=== PATIENT | female | born 1955 | race Caucasian/White ===

== ENCOUNTER 2018-05-07 06:26 | Day surgery (SDC) | payer OTHER ==
[2018-04-30 11:51] LABS: Absolute Lymphocytes (CBC) 1.9 K/uL (0.7-4.9); Absolute Monocytes 0.7 K/uL (0.1-1.3); Absolute Neutrophil 3.9 K/uL (1.8-8.0); Basophils % 1.3 % (0-1.3); Eosinophils % 3.7 % (0-4.4); Hematocrit 41.6 % (36.0-45.0); MCV 92.1 fL (80-100); MPV 9.1 fL (7.6-11.3); Monocytes % 10.2 % (3.3-12.3); RBC Red Blood Cell Count 4.52 M/uL (3.86-4.86)
[2018-04-30 12:00] LABS: Protime INR 0.99
--- NOTE | 2018-04-30 15:17 | EKG ---
Test Date: 2018-04-30 Test Time: 10:50:13 Wrong Address Clerk: ROSA MEASUREMENT RESULTS: Intervals: Rate: 59 MI: 172 QRSD: 88 QT: 438 QTc: 433 [place]: P: 60 MI: 172 QRS: 25 T: 45 INTERPRETIVE STATEMENTS: Sinus bradycardia Otherwise normal ECG Compared to ECG 02/28/2017 13:21:56 Sinus rhythm no longer present Electronically Signed On 04-30-18 15:16:33 CDT by Juan C Silverman
--- OUTSIDE RECORDS SUMMARY | 2018-05-07 06:39 | XMS REPORT ---
:1955 Author Organization eClinicalWorks Care Team Providers Name Role Phone Rickie Stone Provider Role Unavailable Allergies, Adverse Reactions, Alerts Substance Reaction Event Type N.K.D.A. Info Not Available Non Drug Allergy Problems Problem Type Condition Code Onset Dates Condition Status Assessment Pain in joint of right knee M25.561 Active Assessment Closed displaced comminuted S82.041S Active fracture of right patella, sequela Assessment Painful orthopaedic hardware T84.84XA Active Medications Medication Code Code Instructions Start End Status Dosage System Date Date Hydrochlorothiazide [facility] 06155192488 25 MG Oral Active not defined Montelukast Sodium [facility] 21286578599 10 MG Oral Active not defined Temazepam ND 29698109869 15 MG Oral Active not defined Ibuprofen [facility] 29821291095 800 MG Oral Active not defined Lidocaine & Adhesive NDC 0 5 % Externally Active as Sheet directed Carvedilol [facility] 50365028472 12.5 MG Oral Active not defined Results No Known Results Summary Purpose eClinicalWorks Submission
[2018-05-07] MEDS ORDERED: Ringers Lactate 1,000 ML IV ONE (06:47)
[2018-05-07] MEDS ORDERED: CEFAZOLIN/SWI 1gm 1 GM/10 ML SYR ONE (06:47)
[2018-05-07] MEDS ORDERED: PROPOFOL 200 MG/20 ML VIAL IV ONE (07:01)
[2018-05-07] MEDS ORDERED: LIDOCAINE 1% MPF 5 ML VIAL ONE (07:01)
[2018-05-07] MEDS ORDERED: MIDAZOLAM HCL 2 MG/2 ML INJ ONE (07:01)
[2018-05-07] MEDS ORDERED: FENTANYL CITR 250 MCG/5 ML ONE (07:03)
[2018-05-07] MEDS ORDERED: ONDANSETRON HCL 40 MG/20 ML VIAL ONE (07:04)
[2018-05-07] MEDS: BUPIVACAINE 0.25% PF 10 ML VIAL ONE ×3 (08:10→08:42)
--- NOTE | 2018-05-07 09:05 | P.BOP ---
Preoperative diagnosis: right knee retained patellar hardware Postoperative diagnosis: same Primary procedure: removal of hardware right patell Other procedure(s): none Division Plant Engineer: NONE,NONE Estimated blood loss: 10 cc Specimen: none Findings: see dictation Anesthesia: General Complications: None Implants: none Fluids & blood products: per anesthesia record Transferred to: Recovery Room Condition: Good
[2018-05-07] MEDS: MEPERIDINE HCL 50 MG/ML AMP ONE ×4 (09:11→09:35)
[2018-05-07] MEDS ORDERED: ONDANSETRON 4 MG/2 ML VIAL ONE (09:34)
[2018-05-07] MEDS ORDERED: PROMETHAZINE 25 MG/ML VIAL ONE (09:38)
--- NOTE | 2018-05-07 10:17 | RAD REPORT ---
EXAM DESCRIPTION: RAD - Knee Right 2 View - 05/07/2018 9:30 am CLINICAL HISTORY: Postsurgical hardware removal, knee pain, patella fracture repair COMPARISON: March 2017 FINDINGS: Patella fracture fixation hardware has been removed. Patella appears well healed. There de generative and remodeling changes to the patella. Soft tissue swelling around the patella is present not unexpected for the surgical procedure. No acute findings of the femur, tibia or fibula. No suspic ious or unexpected finding. External brace is in place. IMPRESSION: Hardware has been removed from the patella. Patella fracture is well healed. No acute or unexpected finding.
[2018-05-07] MEDS ORDERED: HYDROCODONE/APAP 5/325 MG TAB ONE (10:53)
--- NOTE | 2018-05-07 10:58 | RAD REPORT ---
EXAM DESCRIPTION: RAD - Knee Right 2 View - 05/07/2018 10:44 am CLINICAL HISTORY: Fluoroscopic assisted surgical hardware removal COMPARISON: March 2017 postsurgical images FINDINGS: There were 27 portable C-arm views submitted from the fluoroscopic assisted hardware remov al procedure. Fluoro time was 0.6 minutes. Images show stepwise removal of the hardware. No suspicious or unexpected finding. IMPRESSION: Removal of patella fracture repair hardware. No suspicious or unexpected finding.
--- NOTE | 2018-05-07 21:43 | OP ---
Date of Procedure: 05/07/2018 Surgeon: Rickie Stone MD Preoperative Diagnosis: Retained hardware, right patella. Postoperative Diagnosis: Retained hardware, right patella. Procedure Performed: Removal of hardware, right patella. Anesthesia: General LMA. Fluids: Per Anesthesia record. Estimated Blood Loss: 10 cc. Implants: None. Complications: None. Tourniquet Time: No tourniquet was used. Indication For Procedure: Ms. Guzmán is a 63-year-old female who is just over 1 year status post OR IF of her right patella fracture with tension band fixation. She reports painful retained hardware. Her x-rays demonstrate healed fracture. I discussed with the patient at length risks and benefits a ssociated with operative and nonoperative treatment. She expressed understanding and elected to proc eed with removal of hardware. Description Of Procedure: After informed consent was obtained, the patient was identified in the pre operative holding area. The right lower extremity was marked. The patient was then brought back to the operating room, transferred to the operating table in a supine fashion and placed under general L MA anesthesia. The right lower extremity was then prepped and draped in usual sterile fashion. A ti me-out was initiated. The correct patient and procedure were confirmed and identified. The patient did receive her preoperative prophylactic antibiotics. First, under fluoroscopy, the knee was ranged in both AP and lateral plane. There was no motion at the fracture site confirming complete median f racture. Approximately, a 6 cm incision was made and centered over the prior incision over the proxi mal aspect of the patella. Dissection was then taken down to the extensor mechanism. The K-wires we re then identified under direct visualization, complete removal of the K-wires was confirmed using fl uoroscopy. The cerclage wire was then noted at the one end of the base of the twist and cerclage wir e was then removed. Complete removal of the wire was confirmed using fluoroscopy. The knee was then again ranged under fluoroscopic guidance, and there was no motion at the fracture site. The wound w as then irrigated thoroughly with normal saline. Deep fascia was approximated using an 0 Vicryl. Guillermo bcutaneous tissue was approximated using a 2-0 Vicryl. Skin was approximated with nylon sutures. St erile dressings were applied. The patient was placed in a hinged knee brace with the knee locked up from 0 to 30 degrees. She may be weightbearing as tolerated. Postoperative Plan: She will follow up in my clinic in 2 weeks for suture removal. At that point, w e will increase her range of motion. JOEL/DUSTIN Voice ID: [id number] Report ID: [id number]
== END 2018-05-07 11:28 | disposition home or self-care (01) ==
LOC: OR 06:26
PROVIDERS: ATTEND Orthopaedic Surgery Sports Medicine
PROC: 0QPD04Z Removal of Internal Fixation Device from Right Patella, Open Approach (ICD-10-PCS; principal; 2018-05-07 07:30)
DX: T84.84XA Pain due to internal orthopedic prosthetic devices, implants and grafts, initial encounter (principal); I10 Essential (primary) hypertension; Z87.891 Personal history of nicotine dependence; Z82.49 Family history of ischemic heart disease and other diseases of the circulatory system
CPT/HCPCS: 36415; 80048; 85025; 85610; 85730; 93005; J0690; J2175; J2250; J2405; J2550; J2704; J3010

== ENCOUNTER 2019-05-20 14:13 | Emergency (ER) | payer OTHER ==
--- OUTSIDE RECORDS SUMMARY | 2019-05-20 14:15 | XMS REPORT ---
:1955 Author Organization eClinicalWorks Care Team Providers Name Role Phone Rickie Stone Provider Role Unavailable Allergies, Adverse Reactions, Alerts Substance Reaction Event Type N.K.D.A. Info Not Available Non Drug Allergy Problems Problem Type Condition Code Onset Dates Condition Status Assessment Pain, joint, knee, right M25.561 Active Assessment Closed displaced comminuted S82.041S Active fracture of right patella, sequela Assessment Painful orthopaedic hardware T84.84XA Active Medications Medication Code Code Instructions Start End Status Dosage System Date Date Montelukast Sodium [facility] 07199054351 10 MG Oral Active not defined Ibuprofen ND 06483503156 800 MG Oral Active not defined Hydrochlorothiazide ND 88668657831 25 MG Oral Active not defined Temazepam ND 44760897811 15 MG Oral Active not defined Lidocaine & Adhesive NDC 0 5 % Externally Active as Sheet directed Carvedilol ND 92713310989 12.5 MG Oral Active not defined Results No Known Results Summary Purpose eClinicalWorks Submission
--- OUTSIDE RECORDS SUMMARY | 2019-05-20 14:15 | XMS REPORT ---
[...] End Status Dosage System Date Date Hydrochlorothiazide [facility] [place] 2] 40229439448 25 MG Oral Active not defined Montelukast Sodium [facility] [place] 2] 18217992747 10 MG Oral Active not defined Temazepam ND 32874886247 15 MG Oral Active not defined Ibuprofen [facility] [place]NOTE 2] 41997979242 800 MG Oral Active not defined Lidocaine & Adhesive NDC 0 5 % Externally Active as Sheet directed Carvedilol [facility] [place]NOTE 2] 55381453926 12.5 MG Oral Active not defined Results No Known Results Summary Purpose eClinicalWorks Submission
--- NOTE | 2019-05-20 15:04 | ER ---
Nurse's Notes [facility] Name: Skye Guzmán Age: 64 yrs Sex: Female : 1955 Arrival Date: 05/20/2019 Time: 14:14 Bed Waiting Private MD: Diagnosis: Presentation: 05/20 14:21 Presenting complaint: Patient states: "She has been in the ER for this before in [facility]. This is the third time it's happened. She feels like she is going to pass out." Pt states, "I'm Jittery, my whole body feels numb." Patient reports that symptoms began this morning at 1130. Transition of care: patient was not received from another setting of care. Onset of symptoms was May 20, 2019. Risk Assessment: Do you want to hurt yourself or someone else? Patient reports no desire to harm self or others. Initial Sepsis Screen: Does the patient meet any 2 criteria? No. Patient's initial sepsis screen is negative. Does the patient have a suspected source of infection? No. Patient's initial sepsis screen is negative. 14:21 Method Of Arrival: Ambulatory ss 14:21 Acuity: MALLY 3 ss 14:25 Care prior to arrival: Pt checked her blood sugar 30 minutes ago and reports that is ss was 101. 14:55 Note Patient and her family member are upset that patient has not been taken straight aj1 to the back. Explained to patient that we have no beds at this time, but will get her back in the back as soon as possible. Patient's family is upset states "well I feel like she is having a stroke and you wont take her back!" When asked why she felt that patient was having a stroke she states "well she is having numbness" Patient reports that she currently has numbness over her entire body. Patient denies any unilateral weakness or numbness. Patient has no facial droop or slurred speech at this time. Patient has is to use all four extremities. Explained to patient that her symptoms were not typical stroke symptoms but we would be happy to try to find the cause as soon as we have a bed available. Patient's family member states "her blood pressure is guillermo high and climbing!!" Offered to recheck patient's vital signs, patient refused. Family member asks if we are going to take her back now or if she needs to leave and take patient to [facility]. Instructed patient and family member that we are happy to treat her, but I do not have a bed to put her in at this time. Patient states that she is leaving, stands up out of wheelchair and walks out of the ER with a steady gait. Historical: - Allergies: 14:24 NKA; ss - PMHx: 14:24 Hyperlipidemia; Hypertension; ss - PSHx: 14:24 Hysterectomy; ; ss - Immunization history:: Adult Immunizations up to date. - Social history:: Smoking status: Patient/guardian denies using tobacco, but has a distant history of tobacco abuse. - Ebola Screening: : Patient denies exposure to infectious person Patient denies travel to an Ebola-affected area in the 21 days before illness onset. Vital Signs: 14:24 BP 154 / 90; Pulse 83; Resp 18; Temp 98.3(TE); Pulse Ox 96% on R/A; Weight 67.13 kg; ss Height 5 ft. 2 in. (157.48 cm); Pain 0/10; 14:26 BP 142 / 93; Pulse 83; ss 14:24 Body Mass Index 27.07 (67.13 kg, 157.48 cm) ED Course: 14:14 Patient arrived in ED. as 14:23 Triage completed. ss 14:24 Arm band placed on left wrist. ss Administered Medications: No medications were administered Outcome: 15:03 Eloped from waiting room, before seeing physician rayshawn 15:03 Patient left the ED. aj1 Signatures: Lucia Cristina RN RN Rika Mayberry Shelby, RN RN Corrections: (The following items were deleted from the chart) 14:26 14:21 Care prior to arrival: None. ss 15:03 14:55 Note Patient and her family member are upset that patient has not been taken aj1 straight to the back. Explained to patient that we have no beds at this time, but will get her back in the back as soon as possible. Patient's family is upset states "well I feel like she is having a stroke and you wont take her back!" When asked why she felt that patient was having a stroke she states "well she is having numbness" Patient reports that she currently has numbness over her entire body. Patient denies any unilateral weakness or numbness. Patient has no facial droop or slurred speech at this time. Patient has is able to use all four extremities. Explained to patient that her symptoms were not typical stroke symptoms but we would be happy to try to find the cause as soon as we have a bed available. Patient's family member states "her blood pressure is guillermo high and climbing!!" Offered to recheck patient's vital signs, patient refused. Family member asks if we are going to take her back now or if she needs to leave and take patient to [facility]. Instructed patient and family member that we are happy to treat her, but I do not have a bed to put her in at this time. Patient states that she is leaving, stands up out of wheelchair and walks out of the ER with a steady gait. aj1
[2019-05-20 15:28] VITALS: TEMP 98.3; O2SAT 96
[2019-05-20 15:30] VITALS: BP 142/93
== END 2019-05-20 15:03 | disposition left against medical advice (07) ==
LOC: ER 14:13
DX: Z53.21 Procedure and treatment not carried out due to patient leaving prior to being seen by health care provider (principal)
CPT/HCPCS: 99281

== ENCOUNTER 2023-01-07 01:14 | Observation (INO) | payer OTHER ==
--- OUTSIDE RECORDS SUMMARY | 2023-01-07 01:17 | XMS REPORT | Continuity of Care Document ---
:1955 Author Organization [facility] t Address [address] [place] [address] [place] [id number] Care Team Providers Name Role Phone Raju_P Attending Clinician Unavailable Raju_P Admitting Clinician Unavailable Payers Payer Name Policy Type Policy Number Effective Date Expiration Date S torince MEDICARE NOVITAS MB [id number] [facility] Blue Cross Blue C1 [id number] [facility] [place] [facility] MEDICARE NOVITAS MB [id number] [facility] Blue Cross Blue C1 [id number] [facility] [place] [facility] Blue Cross Blue C1 [id number] [facility] [place] [facility] MEDICARE NOVITAS MB [id number] [facility] MEDICARE NOVITAS MB [id number] [facility] Blue Cross and C1 [id number] [facility] Blue Shield - [facility] Blue Cross and C1 [id number] [facility] Blue Shield [facility] MEDICARE NOVITAS MB [id number] [facility] [place] [id number] 2019 [place] [id number] 2017 [place] 00:00:00 [place]UT[place]: [id number] 2017 [facility] 00:00:00 [facility] Problems Condition Condition Condition Status Onset Resolution Last Treating Co mments Source Name Details Category Date Date Treatment Clinician Date [id number] Arthritis Problem Com mon of left Spirit acromiocla - [facility] vicular [facility] [id number] 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 Social History Social Habit Start Date Stop Date Quantity Comments Source History of Tobacco Use Co mmon [facility] Sex Assigned At Com mon [facility] Smoking Status Start Date Stop Date Source Former Smoker 2022-06-19 00:00:2022-06-19 00:00:00 [facility] Medications Ordered Filled Start Stop Current Ordering Indication Dosage Frequency Signature Comments Components Source Medication Medication Date Date Medication? Clinician (SIG) Name Name Bupivicaine Bupivicaine No 2.5mg Common Marion Marion 11-29 Spirit 00:00: - [facility] Kenalog Kenalog No 40mg Common (Triamcinol (Triamcinol 11-29 S pirit one) one) 00:00: - [facility] Hydrochloro Hydrochloro No Hydrochlor thiazide 25 thiazide 25 othiazide MG MG 25 MG Ibuprofen Ibuprofen No Ibuprofen 800 MG 800 MG 800 MG Lidocaine & Lidocaine & No Lidocaine Adhesive Adhesive & Adhesive Sheet 5 % Sheet 5 % Sheet 5 % Montelukast Montelukast No Montelukas Sodium 10 Sodium 10 t Sodium MG MG 10 MG hydroCHLORO hydroCHLORO No hydroCHLOR thiazide 25 thiazide 25 Othiazide MG MG 25 MG Carvedilol Carvedilol No Carvedilol 12.5 MG 12.5 MG 12.5 MG Temazepam Temazepam No Temazepam 15 MG 15 MG 15 MG Ibuprofen Ibuprofen No Ibuprofen 800 MG 800 MG 800 MG Montelukast Montelukast No Montelukas Sodium 10 Sodium 10 t Sodium MG MG 10 MG Lidocaine & Lidocaine & No Lidocaine Adhesive Adhesive & Adhesive Sheet 5 % Sheet 5 % Sheet 5 % Temazepam Temazepam No Temazepam 15 MG 15 MG 15 MG Carvedilol Carvedilol No Carvedilol 12.5 MG 12.5 MG 12.5 MG hydroCHLORO hydroCHLORO No hydroCHLOR thiazide 25 thiazide 25 Othiazide MG MG 25 MG traZODone traZODone No traZODone HCl HCl HCl Zofran Zofran No Zofran Singulair Singulair No Singulair Levalbutero Levalbutero No Levalbuter l HCl l HCl ol HCl Vascepa Vascepa No Vascepa Valtrex Valtrex No Valtrex Folic Acid Folic Acid No Folic Acid Breztri Breztri No Breztri [employer] carvedilol carvedilol No carvedilol [place] 25 mg 25 mg 25 mg da tablet tablet tablet Medical Group Fioricet Fioricet No Fioricet Phenylalani Phenylalani No Phenylalan ne ne ine Flovent Flovent No Flovent [place] Diskus 100 Diskus 100 Diskus 100 da mcg/actuati mcg/actuati mcg/actuat Medical on powder on powder ion powder Group for for for inhalation inhalation inhalation Temazepam Temazepam No Temazepam 15 MG 15 MG 15 MG fluticasone fluticasone No fluticason [place] propionate propionate e da 50 50 propionate Medical mcg/actuati mcg/actuati 50 G roup on nasal on nasal mcg/actuat spray,suspe spray,suspe ion nasal nsion nsion spray,susp ension Montelukast Montelukast No Montelukas Sodium 10 Sodium 10 t Sodium MG MG 10 MG hydrochloro hydrochloro No hydrochlor [place] thiazide 25 thiazide 25 othiazide da mg tablet mg tablet 25 mg Medi daniel tablet Group Robaxin Robaxin No Robaxin Coreg Coreg No Coreg ipratropium ipratropium No ipratropiu [place] bromide bromide m bromide da 0.02 % 0.02 % 0.02 % Medical solution solution solution Mean up for for for inhalation inhalation inhalation hydroCHLORO hydroCHLORO No hydroCHLOR thiazide 25 thiazide 25 Othiazide MG MG 25 MG ketorolac ketorolac No ketorolac [place] 10 mg 10 mg 10 mg da tablet tablet tablet Medical Group Vitamin D Vitamin D No Vitamin D Quercetin Quercetin No Quercetin levalbutero levalbutero No levalbuter [place] l HFA 45 l HFA 45 ol HFA 45 da mcg/actuati mcg/actuati mcg/actuat Medical on aerosol on aerosol ion Mena up inhaler inhaler aerosol inhaler losartan 50 losartan 50 No losartan [place] mg tablet mg tablet 50 mg da tablet Medical Group montelukast montelukast No montelukas [place] 10 mg 10 mg t 10 mg da tablet tablet tablet Medical Group mupirocin 2 mupirocin 2 No mupirocin [place] % topical % topical 2 % da ointment ointment topical Medi dainel ointment Group Restoril 15 Restoril 15 No 1capsul Q1D Restoril [place] mg capsule mg capsule e(s) 15 mg da Take 1 Take 1 capsule Medical capsule capsule Take 1 Group every day every day capsule by oral by oral every day route. route. by oral route. Symbicort Symbicort No Symbicort [place] 160 mcg-4.5 160 mcg-4.5 160 d a mcg/actuati mcg/actuati mcg-4.5 Medical on HFA on HFA mcg/actuat Group aerosol aerosol ion HFA inhaler inhaler aerosol inhaler valacyclovi valacyclovi No valacyclov [place] r 1 gram r 1 gram ir 1 gram da tablet tablet tablet Medical Group Wellbutrin Wellbutrin No 1 Q1D Wellbutrin [place] XL 300 mg XL 300 mg XL 300 mg da 24 hr 24 hr 24 hr Medical tablet, tablet, tablet, Group extended extended extended release release release Take 1 Take 1 Take 1 tablet tablet tablet every day every day every day by oral by oral by oral route. route. route. Hydrochloro Hydrochloro Yes Rickie not Common thiazide thiazide Stone defined Spir it [facility] Montelukast Montelukast Yes Rickie not Common Sodium Sodium Stone defined [facility] Temazepam Temazepam Yes Rickie not Co mmon Stone defined [facility] Ibuprofen Ibuprofen Yes Rickie not Co mmon Stone defined [facility] Lidocaine & Lidocaine & Yes Rickie as Common Adhesive Adhesive Stone directed Spi rit Sheet Sheet [facility] Carvedilol Carvedilol Yes Rickie not Common Stone defined [facility] Lidocaine & Lidocaine & No Lidocaine Adhesive Adhesive & Adhesive Sheet 5 % Sheet 5 % Sheet 5 % ZyrTEC ZyrTEC No ZyrTEC B Complex B Complex No B Complex ProAir HFA ProAir HFA No ProAir HFA Mupirocin Mupirocin No Mupirocin Losartan Losartan No Losartan Potassium Potassium Potassium Wellbutrin Wellbutrin No Wellbutrin Diclofenac Diclofenac No Diclofenac Zovirax Zovirax No Zovirax Ibuprofen Ibuprofen No Ibuprofen 800 MG 800 MG 800 MG Carvedilol Carvedilol No Carvedilol 12.5 MG 12.5 MG 12.5 MG Flonase Flonase No Flonase Carvedilol Carvedilol No Carvedilol 12.5 MG 12.5 MG 12.5 MG Lidocaine & Lidocaine & No Lidocaine Adhesive Adhesive & Adhesive Sheet 5 % Sheet 5 % Sheet 5 % Montelukast Montelukast No Montelukas Sodium 10 Sodium 10 t Sodium MG MG 10 MG Temazepam Temazepam No Temazepam 15 MG 15 MG 15 MG Ibuprofen Ibuprofen No Ibuprofen 800 MG 800 MG 800 MG Hydrochloro Hydrochloro No Hydrochlor thiazide 25 thiazide 25 othiazide MG MG 25 MG Carvedilol Carvedilol No Carvedilol 12.5 MG 12.5 MG 12.5 MG Lidocaine & Lidocaine & No Lidocaine Adhesive Adhesive & Adhesive Sheet 5 % Sheet 5 % Sheet 5 % Montelukast Montelukast No Montelukas Sodium 10 Sodium 10 t Sodium MG MG 10 MG Temazepam Temazepam No Temazepam 15 MG 15 MG 15 MG Ibuprofen Ibuprofen No Ibuprofen 800 MG 800 MG 800 MG Hydrochloro Hydrochloro No Hydrochlor thiazide 25 thiazide 25 othiazide MG MG 25 MG Carvedilol Carvedilol No Carvedilol 12.5 MG 12.5 MG 12.5 MG Lidocaine & Lidocaine & No Lidocaine Adhesive Adhesive & Adhesive Sheet 5 % Sheet 5 % Sheet 5 % Montelukast Montelukast No Montelukas Sodium 10 Sodium 10 t Sodium MG MG 10 MG Temazepam Temazepam No Temazepam 15 MG 15 MG 15 MG Ibuprofen Ibuprofen No Ibuprofen 800 MG 800 MG 800 MG Immunizations Ordered Immunization Filled Immunization Date Status Commen ts Source Name Name Bupivicaine Marion Bupivicaine Marion 2020-11-29 Completed [facility] 08:35:00 [facility] Bupivicaine Marion Bupivicaine Marion 2020-11-29 Completed [facility] 08:35:00 [facility] Kenalog Kenalog 2020-11-29 Completed [facility] (Triamcinolone) (Triamcinolone) 08:34:00 [facility] Horace Vu 2020-11-29 Completed [facility] (Triamcinolone) (Triamcinolone) 08:34:00 [facility] Vital Signs Vital Name Observation Time Observation Value Comments Source height 2022-06-19 10:00:00 62 [in_i] [facility] weight 2022-06-19 10:00:00 148.7 [lb_av] [facility] temperature 2022-06-19 10:00:00 96.6 [degF] [facility] bmi 2022-06-19 10:00:00 27.19 kg/m2 [facility] blood pressure 2022-06-19 10:00:00 120 mm[Hg] [facility] - systolic [facility] blood pressure 2022-06-19 10:00:00 80 mm[Hg] [facility] - diastolic [facility] height 2021-01-30 09:00:00 62 [in_i] [facility] weight 2021-01-30 09:00:00 146 [lb_av] [facility] temperature 2021-01-30 09:00:00 97.5 [degF] [facility] - [facility] bmi 2021-01-30 09:00:00 26.7 kg/m2 [facility] - [facility] blood pressure 2021-01-30 09:00:00 116 mm[Hg] [facility] - systolic [facility] blood pressure 2021-01-30 09:00:00 74 mm[Hg] [facility] - diastolic [facility] height 2020-11-29 08:00:00 62 [in_i] [facility] - [facility] weight 2020-11-29 08:00:00 146 [lb_av] [facility] temperature 2020-11-29 08:00:00 97.3 [degF] [facility] bmi 2020-11-29 08:00:00 26.7 kg/m2 [facility] - [facility] blood pressure 2020-11-29 08:00:00 122 mm[Hg] [facility] - systolic [facility] blood pressure 2020-11-29 08:00:00 82 mm[Hg] [facility] - diastolic [facility] height 2020-11-07 14:00:00 62 [in_i] [facility] weight 2020-11-07 14:00:00 146.7 [lb_av] [facility] - [facility] bmi 2020-11-07 14:00:00 26.83 kg/m2 [facility] blood pressure 2020-11-07 14:00:00 126 mm[Hg] [facility] - systolic [facility] blood pressure 2020-11-07 14:00:00 84 mm[Hg] [facility] - diastolic [facility] BP Diastolic 2019-09-04 00:00:00 80 mm[Hg] [facility] Height 2019-09-04 00:00:00 62 [in_i] [facility] BMI (Body Mass 2019-09-04 00:00:00 27.6 kg/m2 [facility] Medical Index) Group BP Systolic 2019-09-04 00:00:00 119 mm[Hg] [facility] Body Weight 2019-09-04 00:00:00 151 [lb_av] [facility] BP Diastolic 2019-07-24 00:00:00 92 mm[Hg] [facility] Height 2019-07-24 00:00:00 62 [in_i] [facility] BMI (Body Mass 2019-07-24 00:00:00 27.7 kg/m2 [facility] BP Systolic 2019-07-24 00:00:00 145 mm[Hg] [facility] Body Weight 2019-07-24 00:00:00 151.4 [lb_av] [facility] BP Diastolic 2019-06-22 00:00:00 92 mm[Hg] [facility] Height 2019-06-22 00:00:00 62 [in_i] [facility] BMI (Body Mass 2019-06-22 00:00:00 27.1 kg/m2 [facility] BP Systolic 2019-06-22 00:00:00 127 mm[Hg] [facility] Body Weight 2019-06-22 00:00:00 148 [lb_av] [facility] Procedures Procedure Date / Time Performing Clinician Source Performed TYMPANOMETRY 2019-09-04 00:00:00 [facility] TYMPANOMETRY 2019-06-22 00:00:00 [facility] Knee Arthroscopy/surgery 2017-03-05 00:00:00 [facility] Hysterectomy 1986-07-01 00:00:00 [facility] Section [facility] Plan of Care Planned Activity Planned Date Details Comments Source Instructions [facility] Encounters Start End Encounter Admission Attending Care Care Encounter Source Date/Time Date/Time Type Type Clinicians Facility Department ID 2022-07-04 Outpatient STLMLC STLMLC [id number] Common 12:34:00 [id number] [facility] 2022-06-19 Outpatient STLMLC STLMLC [id number] Common 13:08:01 [id number] [facility] 2022-05-28 Outpatient STLMLC STLMLC [id number] Common 15:19:00 [id number] [facility] 2021-07-26 Outpatient STLMLC STLMLC [id number] Common 13:01:26 [id number] [facility] 2021-07-26 Outpatient STLMLC STLMLC [id number] Common 12:52:31 [id number] [facility] 2022-06-19 2022-06-19 OFFICE STLMLC STLMLC [id number] Co mmon 00:00:00 00:00:00 [facility] ESTAB PT - [facility] LEVEL 4 [facility] 2021-01-30 2021-01-30 OFFICE STLMLC STLMLC [id number] Co mmon 00:00:00 00:00:00 VISIT EST Spir it PT LEVEL 3 - [facility] 2020-11-29 2020-11-29 OFFICE STLMLC STLMLC [id number] Co mmon 00:00:00 00:00:00 [facility] ESTAB PT - [facility] LEVEL 4 [facility] 2020-11-23 2020-11-23 (TEL) STLMLC STLMLC [id number] Co mmon 00:00:00 00:00:00 [facility] 2020-11-08 2020-11-08 (TEL) STLMLC STLMLC [id number] Co mmon 00:00:00 00:00:00 [facility] 2020-11-07 2020-11-07 OFFICE STLMLC STLMLC [id number] Co mmon 00:00:00 00:00:00 [facility] ESTAB PT - [facility] LEVEL 4 [facility] 2020-06-02 2020-06-02 Outpatient Raju_P MMG MMG [id number] [place] 05:02:00 05:02:00 [id number] [facility] 2020-05-18 2020-05-18 Outpatient Raju_P MMG MMG [id number] [place] 02:34:00 02:34:00 [id number] [facility] 2019-11-17 2019-11-17 Outpatient Raju_P MMG MMG [id number] [place] 03:28:00 03:28:00 [id number] [facility] 2019-11-10 2019-11-10 Outpatient Raju_P MMG MMG [id number] [place] 12:53:00 12:53:00 0512 [facility] 2019-11-04 2019-11-04 Outpatient Raju_P MMG MMG [id number] [place] 12:49:00 12:49:00 0506 [facility] 2019-09-30 2019-09-30 Outpatient Raju_P MMG MMG [id number] [place] 01:18:00 01:18:00 0401 [facility] 2019-09-10 2019-09-10 Outpatient Raju_P MMG MMG [id number] [place] 04:00:00 04:00:00 0312 [facility] 2019-09-08 2019-09-08 Outpatient Raju_P MMG MMG [id number] [place] 02:29:00 02:29:00 0310 [facility] 2019-09-07 2019-09-07 Outpatient Raju_P MMG MMG [id number] [place] 10:40:00 10:40:00 0309 [facility] 2019-09-04 2019-09-04 Outpatient Raju_P MMG MMG [id number] [place] 12:36:00 12:36:00 0306 [facility] 2019-09-04 2019-09-04 Pal[facility] [place] - [id number] [place] 00:00:00 00:00:00 MD Ty: [address] [place] [address] , Ph. 2019-08-31 2019-08-31 Outpatient Raju_P MMG MMG [id number] [place] 05:27:00 05:27:00 0302 [facility] 2019-07-28 2019-07-28 Outpatient Raju_P MMG MMG [id number] [place] 08:38:00 08:38:00 0128 [facility] Group 2019-07-27 2019-07-27 Outpatient Raju_P MMG MMG [id number] [place] 03:03:00 03:03:00 0127 [facility] 2019-07-24 2019-07-24 Outpatient Raju_P MMG MMG [id number] [place] 04:42:00 04:42:00 0124 [facility] 2019-07-24 2019-07-24 [facility] [place] - [id number] [place] 00:00:00 00:00:00 MD Ty: [address], [place] [address] , Ph. 2019-07-10 2019-07-10 Outpatient Raju_P MMG MMG [id number] [place] 11:31:00 11:31:00 0122 [facility] 2019-06-22 2019-06-22 Palivela [facility] [place] - [id number] [place] 00:00:00 00:00:00 MD Ty: [address] Group [place] [place] - [address], Otolaryngol [facility] [place] [place] [address] , Ph. 2018-06-19 2018-06-19 [facility] [id number] Common 09:30:00 09:30:00 [facility] 2018-04-10 2018-04-10 [facility] [id number] Common 13:30:00 13:30:00 [facility] - [facility] Results Test Description Test Time Test Comments Results Result Comments Source tympanogram 2019-09-04 11:22:00 Test Item Value Reference Range Interpretation Comme nts Right (test code = Right) Type C Peak is on Left Left (test code = Left) Type A [id number] 10:19:04 Test Item Value Reference Range Interpretation Comments Right (test code = Type C Peak is on Left Right) Left (test code = Type A Normal Left) [facility]
[2023-01-07] MEDS ORDERED: ONDANSETRON 4 MG/2 ML VIAL ONE ×2 (02:38→05:15)
[2023-01-07] MEDS ORDERED: NA CHLORIDE 0.9% 1,000 ML ONE (02:38)
[2023-01-07] MEDS ORDERED: MORPHINE 4 MG/ML SYR ONE (02:38)
[2023-01-07] MEDS ORDERED: NA CHLORIDE 0.9% 500 ML ONE (02:38)
[2023-01-07 02:42] LABS: Absolute Lymphocytes (CBC) 1.2 K/uL (0.7-4.9); Hematocrit 41.6 % (36.0-45.0); Lymphocytes % 9.9 % (15.3-44.8); MCV 92.4 fL (80-100); MPV 7.9 fL (7.6-11.3)
[2023-01-07 02:55] LABS: Albumin 3.4 g/dL (3.4-5.0); Bilirubin Direct 0.2 mg/dL (0-0.2); Bilirubin Indirect, Calculated 0.9 mg/dL (0.2-0.8); Bilirubin Total 1.1 mg/dL (0.2-1.0); Potassium 3.9 mEq/L (3.5-5.1); Protein, Total 7.5 g/dL (6.4-8.2); Troponin High Sensitivity 4.1 pg/mL (<58.9)
[2023-01-07 05:25] LABS: Blood Morphology Comment NOT SEEN (NOT SEEN); Platelet Estimate ADEQ
[2023-01-07] MEDS ORDERED: ACETAMINOPHEN 500 MG TAB ONE ×2 (05:33→05:38)
[2023-01-07] MEDS ORDERED: NA CHLORIDE 0.9% 100 ML ONE (06:41)
[2023-01-07] MEDS ORDERED: METOCLOPRAMIDE 10 MG/2mL INJ ONE (06:41)
--- NOTE | 2023-01-07 07:53 | ER ---
Nurse's Notes [facility] Name: Skye Guzmán Age: 68 yrs Sex: Female : 1955 Arrival Date: 01/07/2023 Time: 01:14 Bed 2 Private MD: Diagnosis: Vomiting, unspecified;Hypertensive heart disease without heart failure;Headache Presentation: 01/07 01:30 Chief complaint: Patient states: twisted back with back pain of 6,onset yesterday at pf1 1800 when she slipped on some water on the floor, fell and landed onto her back with C/O throbbing headache pain of 7 to temporal region,onset 1500 with nausea and vomiting x 10 episodes since yesterday. Patient denies any head injury when falling yesterday. 01:30 Coronavirus screen: Vaccine status: Patient reports receiving the 2nd dose of the covid pf1 vaccine. Client denies travel out of the [place] in the last 14 days. Client presents with at least one sign or symptom that may indicate coronavirus-19. Ebola Screen: Patient negative for fever greater than or equal to 101.5 degrees Fahrenheit, and additional compatible Ebola Virus Disease symptoms. Initial Sepsis Screen: Does the patient meet any 2 criteria? No. Patient's initial sepsis screen is negative. Does the patient have a suspected source of infection? No. Patient's initial sepsis screen is negative. Risk Assessment: Do you want to hurt yourself or someone else? Patient reports no desire to harm self or others. 01:30 Method Of Arrival: Wheelchair pf1 01:30 Acuity: MALLY 3 pf1 13:21 Onset of symptoms was January 07, 2023. ld1 Historical: - Allergies: 01:30 NKA; pf1 - PMHx: 01:30 Hyperlipidemia; Hypertension; Anxiety; pf1 - PSHx: 01:30 right knee repair; Total abdominal hysterectomy; section; pf1 - Immunization history:: Client reports receiving the 2nd dose of the Covid vaccine, Last tetanus immunization: > 10 years ago Flu vaccine is up to date. - Social history:: Smoking status: Patient denies any tobacco usage or history of. Screenin:20 [facility] ED Fall Risk Assessment (Adult) History of falling in the last 3 months, ld1 including since admission No falls in past 3 months (0 pts). Abuse screen: Denies threats or abuse. Denies injuries from another. Nutritional screening: No deficits noted. Tuberculosis screening: No symptoms or risk factors identified. Assessment: 01:45 General: Appears in no apparent distress. uncomfortable, Behavior is calm, cooperative, jb4 appropriate for age. Pain: Complains of pain in forehead, right roman catholic, left roman catholic and low back area Pain does not radiate. Pain currently is 10 out of 10 on a pain scale. Neuro: Level of Consciousness is awake, alert, obeys commands, Oriented to person, place, time, situation. Cardiovascular: Patient's skin is warm and dry. Respiratory: Airway is patent Respiratory effort is even, unlabored, Respiratory pattern is regular, symmetrical. GI: No signs and/or symptoms were reported involving the gastrointestinal system. : No signs and/or symptoms were reported regarding the genitourinary system. EENT: No signs and/or symptoms were reported regarding the EENT system. Derm: Skin is intact, Skin is pink, warm \T\ dry. Musculoskeletal: Circulation, motion, and sensation intact. Range of motion: intact in all extremities. 03:00 Reassessment: Patient appears in no apparent distress at this time. Patient and/or jb4 family updated on plan of care and expected duration. Pain level reassessed. Patient is alert, oriented x 3, equal unlabored respirations, skin warm/dry/pink. 04:00 Reassessment: Patient appears in no apparent distress at this time. Patient and/or jb4 family updated on plan of care and expected duration. Pain level reassessed. Patient is alert, oriented x 3, equal unlabored respirations, skin warm/dry/pink. 05:00 Reassessment: Patient appears in no apparent distress at this time. Patient and/or jb4 family updated on plan of care and expected duration. Pain level reassessed. Patient is alert, oriented x 3, equal unlabored respirations, skin warm/dry/pink. 06:46 Reassessment: Patient appears in no apparent distress at this time. Patient and/or jb4 family updated on plan of care and expected duration. Pain level reassessed. Patient is alert, oriented x 3, equal unlabored respirations, skin warm/dry/pink. 13:20 Reassessment: Patient appears in no apparent distress at this time. No changes from ld1 previously documented assessment. Patient and/or family updated on plan of care and expected duration. Pain level reassessed. Patient is alert, oriented x 3, equal unlabored respirations, skin warm/dry/pink. 13:20 Reassessment: Ambulating down hallway with physical therapy at this moment. ld1 Vital Signs: 01:30 BP 165 / 96; Pulse 96; Resp 18; Temp 97.3; Pulse Ox 98% on R/A; Weight 67.59 kg; Height pf1 5 ft. 2 in. ; Pain 7/10; 02:45 BP 166 / 79; Pulse 66; Resp 16; Pulse Ox 92% on R/A; jb4 03:30 BP 153 / 79; Pulse 72; Resp 16; Pulse Ox 93% on R/A; jb4 04:22 BP 158 / 86; Pulse 69; Resp 18; Pulse Ox 92% on R/A; jb4 05:45 BP 162 / 81; Pulse 72; Resp 16; Pulse Ox 97% on R/A; jb4 06:30 BP 167 / 83; Pulse 69; Resp 16; Pulse Ox 98% on R/A; jb4 13:20 BP 154 / 69; Pulse 74; Resp 18; Pulse Ox 99% on R/A; ld1 01:30 Body Mass Index 27.25 (67.59 kg, 157.48 cm) pf1 01:30 Pain Scale: Adult pf1 ED Course: 01:16 Patient arrived in ED. ja2 01:40 Antoine Mabry MD is Attending Physician. kdr 02:30 Initial lab(s) drawn, by me, sent to lab. Inserted saline lock: 18 gauge in right jb4 antecubital area, using aseptic technique. Blood collected. 02:34 Troponin HS Sent. jb4 02:34 NT PRO-BNP Sent. jb4 02:34 Magnesium Sent. jb4 02:34 LFT's Sent. jb4 02:34 CBC with Diff Sent. jb4 02:34 Basic Metabolic Panel Sent. jb4 02:47 XRAY Chest (1 view) In Process Unspecified. EDMS 02:58 Todd Caro, RN is Primary Nurse. jb4 03:23 CT Head Brain wo Cont In Process Unspecified. EDMS 03:23 CT Lumbar Spine Wo Con In Process Unspecified. EDMS 04:20 Triage completed. pf1 07:51 Maulik Obrien MD is Hospitalizing Provider. kdr 09:06 MRA Head Wo Cont In Process Unspecified. EDMS 09:36 CT Abd/Pelvis - Without Contrast In Process Unspecified. EDMS 10:06 Brain W/Wo Cont In Process Unspecified. EDMS 10:07 MRA Neck W/Wo Cont In Process Unspecified. EDMS 13:20 No provider procedures requiring assistance completed. Patient admitted, IV remains in ld1 place. 13:20 Patient has correct armband on for positive identification. Placed in gown. Bed in low ld1 position. Call light in reach. Side rails up X2. manager monitoring on. Pulse ox on. NIBP on. Door closed. Noise minimized. Warm blanket given. 13:21 Arm band placed on right wrist. ld1 Administered Medications: 02:41 Drug: morphine IVP or IV 4 mg Route: IVP; Infused Over: 4 mins; Site: right antecubital;jb4 02:41 Drug: Ondansetron IVP 4 mg Route: IVP; Site: right antecubital; jb4 02:41 Drug: NS 0.9% IV 500 ml Route: IV; Rate: bolus; Site: right antecubital; jb4 03:05 Drug: NS 0.9% IV 1000 ml Route: IV; Rate: 125 ml/hr; Site: right antecubital; jb4 05:11 Drug: Ondansetron IVP 4 mg Route: IVP; Site: right antecubital; jb4 06:02 Drug: Acetaminophen PO 1000 mg Route: PO; jb4 06:45 Drug: metoCLOPramide IVP 20 mg {Note: Administered in 100ml NS per provider..} Route: jb4 IVP; Infused Over: 15 mins; Site: right antecubital; 07:51 Drug: Promethazine IVP 12.5 mg Route: IVP; Site: right antecubital; ld1 Medication: 13:21 VIS not applicable for this client. ld1 Outcome: 07:52 Decision to Hospitalize by Provider. kdr 13:21 Admitted to Med/surg accompanied by tech, via wheelchair, room 224, Report called to ld1 OFELIA Araiza 13:21 Condition: stable 13:21 Instructed on the need for admit. 13:42 Patient left the ED. ld1 Signatures: Dispatcher [employer] Antoine Talamantes MD MD kdr Todd Caro RN RN jb4 Jeannette Sánchez RN RN 1 Tianna Samuel Ursula Noble RN RN pf1
--- NOTE | 2023-01-07 07:54 | EDPHYS ---
Physician Documentation [facility] Name: Skye Guzmán Age: 68 yrs Sex: Female : 1955 Arrival Date: 01/07/2023 Time: 01:14 Bed 2 Private MD: ED Physician Antoine Mabry HPI: 01/07 03:43 This 68 yrs old Female presents to ER via Unassigned with complaints of High Blood kdr Pressure, Weakness, Nausea/Vomiting. 03:43 Patient presents to the ED complaining of hypertension, headache, low back pain and kdr generalized weakness with some nausea. Patient states that she recently felt a few days ago and since then has had low back pain in addition to that her blood pressure has been elevated today and she has had a headache. She had some nausea with that and just generally weak but otherwise no other focal complaints. Patient is generally comfortable appearing though she does have a wet washcloth across her face to keep the light out of her eyes and provide some relief. Patient otherwise awake alert and oriented and appropriate.. Onset: The symptoms/episode began/occurred Lower back pain has been ongoing for the last 3 to 4 days since her fall. Her headache and generalized hypertensive state has developed over the course of the day. She has taken her home medications as recommended and has not missed any doses. Has not had any change in her medications recently. Severity of symptoms: At their worst the symptoms were moderate in the emergency department the symptoms are unchanged. The patient has not experienced similar symptoms in the past. The patient has not recently seen a physician. Historical: - Allergies: 01:30 NKA; pf1 - PMHx: 01:30 Hyperlipidemia; Hypertension; Anxiety; pf1 - PSHx: 01:30 right knee repair; Total abdominal hysterectomy; section; pf1 - Immunization history:: Client reports receiving the 2nd dose of the Covid vaccine, Last tetanus immunization: > 10 years ago Flu vaccine is up to date. - Social history:: Smoking status: Patient denies any tobacco usage or history of. ROS: 03:43 Constitutional: Negative for fever, chills, and weight loss, Eyes: Negative for injury, kdr pain, redness, and discharge, ENT: Negative for injury, pain, and discharge, Neck: Negative for injury, pain, and swelling, Cardiovascular: Negative for chest pain, palpitations, and edema, Respiratory: Negative for shortness of breath, cough, wheezing, and pleuritic chest pain, Abdomen/GI: Negative for abdominal pain, nausea, vomiting, diarrhea, and constipation, : Negative for injury, bleeding, discharge, and swelling, MS/Extremity: Negative for injury and deformity, Skin: Negative for injury, rash, and discoloration, Psych: Negative for depression, anxiety, suicide ideation, homicidal ideation, and hallucinations, Allergy/Immunology: Negative for hives, rash, and allergies, Endocrine: Negative for neck swelling, polydipsia, polyuria, polyphagia, and marked weight changes, Hematologic/Lymphatic: Negative for swollen nodes, abnormal bleeding, and unusual bruising. 03:43 Back: Positive for injury or acute deformity, pain at rest, pain with movement, of the lumbar area. 03:43 Neuro: Positive for headache, Patient states her headache is frontal and temples. Exam: 03:43 Constitutional: This is a well developed, well nourished patient who is awake, alert, kdr and in no acute distress. Head/Face: Normocephalic, atraumatic. Eyes: Pupils equal round and reactive to light, extra-ocular motions intact. Lids and lashes normal. Conjunctiva and sclera are non-icteric and not injected. Cornea within normal limits. Periorbital areas with no swelling, redness, or edema. Neck: Trachea midline, no thyromegaly or masses palpated, and no cervical lymphadenopathy. Supple, full range of motion without nuchal rigidity, or vertebral point tenderness. No Meningismus. Chest/axilla: Normal chest wall appearance and motion. Nontender with no deformity. No lesions are appreciated. Cardiovascular: Regular rate and rhythm with a normal S1 and S2. No gallops, murmurs, or rubs. Normal PMI, no JVD. No pulse deficits. Respiratory: Lungs have equal breath sounds bilaterally, clear to auscultation and percussion. No rales, rhonchi or wheezes noted. No increased work of breathing, no retractions or nasal flaring. Abdomen/GI: Soft, non-tender, with normal bowel sounds. No distension or tympany. No guarding or rebound. No evidence of tenderness throughout. Skin: Warm, dry with normal turgor. Normal color with no rashes, no lesions, and no evidence of cellulitis. MS/ Extremity: Pulses equal, no cyanosis. Neurovascular intact. Full, normal range of motion. Neuro: Awake and alert, GCS 15, oriented to person, place, time, and situation. Cranial nerves II-XII grossly intact. Motor strength 5/5 in all extremities. Sensory grossly intact. Cerebellar exam normal. Normal gait. Psych: Awake, alert, with orientation to person, place and time. Behavior, mood, and affect are within normal limits. 03:43 Back: pain, that is mild, that is moderate, ROM is painful, normal spinal alignment noted, CVA tenderness, is absent, vertebral tenderness, is appreciated at L1, L2 and L3. Vital Signs: 01:30 BP 165 / 96; Pulse 96; Resp 18; Temp 97.3; Pulse Ox 98% on R/A; Weight 67.59 kg; Height pf1 5 ft. 2 in. ; Pain 7/10; 02:45 BP 166 / 79; Pulse 66; Resp 16; Pulse Ox 92% on R/A; jb4 03:30 BP 153 / 79; Pulse 72; Resp 16; Pulse Ox 93% on R/A; jb4 04:22 BP 158 / 86; Pulse 69; Resp 18; Pulse Ox 92% on R/A; jb4 05:45 BP 162 / 81; Pulse 72; Resp 16; Pulse Ox 97% on R/A; jb4 06:30 BP 167 / 83; Pulse 69; Resp 16; Pulse Ox 98% on R/A; jb4 13:20 BP 154 / 69; Pulse 74; Resp 18; Pulse Ox 99% on R/A; ld1 01:30 Body Mass Index 27.25 (67.59 kg, 157.48 cm) pf1 01:30 Pain Scale: Adult pf1 MDM: 03:43 Data reviewed: vital signs, nurses notes, lab test result(s), radiologic studies. kdr 07:52 Patient medically screened. kdr 07:53 ED course: Patient is feeling much better in terms of her headache and blood pressure kdr has improved but she still remains intermittently nauseated and vomiting. We will get an MRI of her brain stroke protocol and admit her for intractable vomiting. 01/07 02:32 Order name: Basic Metabolic Panel; Complete Time: 04:56 kdr 01/07 02:32 Order name: CBC with Diff kdr 01/07 02:32 Order name: LFT's; Complete Time: 04:56 kdr 01/07 02:32 Order name: Magnesium; Complete Time: 04:56 kdr 01/07 02:32 Order name: NT PRO-BNP; Complete Time: 04:56 kdr 01/07 02:32 Order name: Troponin HS; Complete Time: 04:56 kdr 01/07 02:48 Order name: Manual Differential EDMS 01/07 02:19 Order name: CT Head Brain wo Cont kdr 01/07 02:21 Order name: CT Lumbar Spine Wo Con kdr 01/07 02:32 Order name: XRAY Chest (1 view) kdr 01/07 08:14 Order name: MRA Head Wo Cont EDMS 01/07 08:17 Order name: Brain W/Wo Cont EDMS 01/07 08:17 Order name: MRA Neck W/Wo Cont EDMS 01/07 08:24 Order name: CT Abd/Pelvis - Without Contrast kdr 01/07 02:32 Order name: EKG; Complete Time: 02:33 kdr 01/07 02:26 Order name: IV Saline Lock; Complete Time: 02:26 jb4 01/07 02:32 Order name: Cardiac monitoring; Complete Time: 03:05 kdr 01/07 02:32 Order name: EKG - Nurse/Tech; Complete Time: 03:05 kdr 01/07 02:32 Order name: Labs collected and sent; Complete Time: 02:34 kdr 01/07 02:32 Order name: O2 Per Protocol; Complete Time: 02:34 kdr 01/07 02:32 Order name: O2 Sat Monitoring; Complete Time: 02:34 kdr 01/07 05:07 Order name: PO challenge; Complete Time: 06:02 kdr 01/07 05:07 Order name: Misc. Order: Ambulate patient; Complete Time: 06:29 kdr Administered Medications: 02:41 Drug: morphine IVP or IV 4 mg Route: IVP; Infused Over: 4 mins; Site: right antecubital;jb4 02:41 Drug: Ondansetron IVP 4 mg Route: IVP; Site: right antecubital; jb4 02:41 Drug: NS 0.9% IV 500 ml Route: IV; Rate: bolus; Site: right antecubital; jb4 03:05 Drug: NS 0.9% IV 1000 ml Route: IV; Rate: 125 ml/hr; Site: right antecubital; jb4 05:11 Drug: Ondansetron IVP 4 mg Route: IVP; Site: right antecubital; jb4 06:02 Drug: Acetaminophen PO 1000 mg Route: PO; jb4 06:45 Drug: metoCLOPramide IVP 20 mg {Note: Administered in 100ml NS per provider..} Route: jb4 IVP; Infused Over: 15 mins; Site: right antecubital; 07:51 Drug: Promethazine IVP 12.5 mg Route: IVP; Site: right antecubital; ld1 Disposition Summary: 01/07/23 07:52 Hospitalization Ordered Hospitalization Status: Inpatient Admission kdr Provider: Maulik Obrien Location: Telemetry/MedSurg (Inpatient) kdr Condition: Fair kdr Problem: new kdr Symptoms: are unchanged kdr Bed/Room Type: Standard kdr Room Assignment: 224(01/07/23 13:04) ll1 Diagnosis - Vomiting, unspecified kdr - Hypertensive heart disease without heart failure kdr - Headache kdr Discharge Instructions: - Discharge Summary Sheet kl Forms: - SBAR form kl - Medication Reconciliation Form kdr Signatures: Dispatcher [employer] EDMS Antoine Mabry MD MD kdr Todd Caro RN RN jb4 Mitchell Rae RN RN ll1 Jeannette Sánchez RN RN ld1 Ursula Noble RN RN pf1 Corrections: (The following items were deleted from the chart) 08:14 07:52 MR STROKE PROTOCOL+MRI.RAD.BRZ ordered. EDCO EDCO 13:04 07:52 kdr ll1
[2023-01-07] MEDS ORDERED: PROMETHAZINE INJ 25 MG/ML AMP ONE (07:55)
--- NOTE | 2023-01-07 09:27 | RAD REPORT ---
EXAM DESCRIPTION: MRI - MRA Head Wo Cont - 01/07/2023 9:05 am CLINICAL HISTORY: Headache;Weakness COMPARISON: Brain Wo Cont dated 07/16/2022; Head Brain Wo Cont dated 01/07/2023 TECHNIQUE: 3D noncontrast [id number] MR angiography of the [place] was performed. FINDINGS: No evidence of large vessel occlusion. No aneurysm, flow-limiting stenosis or vascular malformation i s seen. Forward flow seen in codominant vertebral arteries. Diminutive caliber of the right vertebral artery including its extradural included segments. This is likely developmental or related to chronic proximal occlusion. Diminutive left P1 segment. Patent posterior communicating arteries bilaterally. The visualized dural venous sinuses appear patent. IMPRESSION: No significant flow abnormality of the [place] is identified. Diminutive caliber of the right vertebral artery including its extradural included segments. This is likely developmental or related to chronic proximal occlusion.
--- NOTE | 2023-01-07 10:10 | RAD REPORT ---
EXAM DESCRIPTION: CT - Abdomen Pelvis Wo Contrast - 01/07/2023 9:34 am CLINICAL HISTORY: vomiting COMPARISON: MRA Neck W/Wo Cont dated 01/07/2023; Brain W/Wo Cont dated 01/07/2023; MRA Head Wo Cont da magali 01/07/2023 TECHNIQUE: Thin cut axial CT imaging of the abdomen and pelvis was performed without IV contrast. Mu ltiplanar reformats were generated and reviewed. All CT scans are performed using dose optimization technique as appropriate and may include automated exposure control or mA/KV adjustment according to patient size. FINDINGS: No suspicious findings in the lung bases. The liver, spleen, and pancreas show no suspicious findings. Gallbladder and biliary tree are also wi thout suspicious finding. Symmetric renal contour, without suspicious parenchymal findings within limits of noncontrast techniq ue. No evidence of radiopaque calculi or hydroureteronephrosis. Excreted mildly hyperdense contrast t hroughout the renal collecting systems limits evaluation. No dilated bowel loops or bowel wall thickening. Colonic diverticulosis, with apparent wall prominenc e of a long segment of the sigmoid colon, nonspecific and could relate to nondistention or sequelae o f prior attacks of diverticulitis. No free air, free fluid or inflammatory stranding. No hernia, mass or bulky lymphadenopathy. The urinary bladder is without significant finding. No suspicious bony findings. Mild superior endplate compression deformity at T11, favored to be chron ic. IMPRESSION: No acute intra-abdominal process. Mildly hyperdense excreted contrast throughout the renal collecting systems limits evaluation. Colonic diverticulosis. Mild superior endplate compression deformity at T11, favored to be chronic, but ultimately is of inde terminate age.
--- NOTE | 2023-01-07 10:50 | RAD REPORT ---
EXAM DESCRIPTION: MRI - Brain W/Wo Cont - 01/07/2023 10:05 am CLINICAL HISTORY: HEADACHE, WEAKNESS COMPARISON: Noncontrast head CT of earlier the same day. Brain MRI 07/16/2022 TECHNIQUE: Multiplanar multisequence MRI of the brain performed before and after intravenous adminis tration of 12 mL MultiHance. FINDINGS: Motion artifact somewhat limits evaluation, despite attempts at repeat imaging. No evidence of acute infarct or other diffusion signal abnormality. No evidence of acute intracranial hemorrhage or abnormal extra-axial fluid collections. Stable promin ence of the left frontal extra-axial CSF space, compared to the prior brain MRI, may be developmental or pathic, or related to a small chronic hygroma. Mild diffuse parenchymal volume loss. Ventricular caliber otherwise within normal for age. Midline st ructures are unremarkable. Scattered subcortical and deep white matter T2/FLAIR hyperintensities, nonspecific, but suggestive of chronic small vessel ischemic changes. No mass effect or midline shift. No suspicious intra-axial or extra-axial enhancement. Major vascular flow voids are preserved. Mastoid air cells and paranasal sinuses are clear. IMPRESSION: No acute intracranial process. No evidence of ventriculomegaly or mass effect. No susp icious intracranial mass or abnormal enhancement. Stable chronic findings as above.
[2023-01-07] MEDS ORDERED: ACETAMINOPHEN 325 MG TABLET PO PRN (11:08)
--- NOTE | 2023-01-07 11:19 | P.HP ---
Certification for Inpatient Patient admitted to: Observation With expected LOS: <2 Midnights Patient will require the following post-hospital care: None Practitioner: I am a practitioner with admitting privileges, knowledge of patient current condition, hospital course, and medical plan of care. Services: Services provided to patient in accordance with Admission requirements found in Title 42 Section 412.3 of the Code of Federal Regulations Patient History Date of Service: 01/07/23 Reason for admission: Nausea and vomitting History of Present Illness: Patient is a 68-year-old female with a past medical history significant for hyperlipidemia, hypertension, anxiety disorder who presents with complaint of nausea and vomiting onset yesterday. Patient fell 2 days ago after she slipped on water and fell backwards. Patient reported that she hit her back but did not hit her head. Patient denies loss of consciousness. Patient rated pain as 9/10 in severity and described pain as aching in quality. Patient reported associated signs and symptoms of headache and weakness. Patient denies any other signs and symptoms. Symptoms are aggravated or relieved by nothing. Patient decided to present to the hospital for medical evaluation. Allergies morphine Adverse Reaction (Verified 04/30/18 10:36) Nausea/Vomiting Home Medications: Cetirizine HCl [Zyrtec*] 5 mg PO DAILY 02/28/17 L.acidoph,Paracasei, B.lactis [Probiotic] 1 cap PO DAILY 02/28/17 Temazepam [Restoril*] 15 mg PO BEDTIME 02/28/17 carvediloL [Coreg*] 25 mg PO BID 02/28/17 Fluticasone [Flonase 50mcg Nasal [place]] 2 sprays NS DAILY 04/30/18 L.acidoph,Paracasei, B.lactis [Probiotic] 1 each PO DAILY 04/30/18 Melatonin/Pyridoxine [Melatonin 5 mg Tablet] 2 each PO BEDTIME 04/30/18 Montelukast [Singulair] 10 mg PO DAILY 04/30/18 Multivitamin [Multivitamins] 1 each PO DAILY 04/30/18 - Past Medical/Surgical History -: HTN -: HLD -: Anxiety disorder -: Insomnia -: Right knee surgery. -: Hysterectomy -: . - Social History Smoking Status: Never smoker Alcohol use: No CD- Drugs: No Caffeine use: No Place of Residence: Home Review of Systems General: Unremarkable Eyes: Unremarkable ENT: Unremarkable Respiratory: Unremarkable Cardiovascular: Unremarkable Gastrointestinal: Nausea, Vomiting Genitourinary: Unremarkable Musculoskeletal: Back Pain Integumentary: Unremarkable Neurological: Weakness, Other (Headache.), Unremarkable Lymphatics: Unremarkable Physical Examination - Physical Exam General: Alert, In no apparent distress, Oriented x3, Cooperative HEENT: Atraumatic, PERRLA, Mucous membr. moist/pink, EOMI, Sclerae nonicteric Neck: Supple, 2+ carotid pulse no bruit, No LAD, Without JVD or thyroid abnormality Respiratory: Clear to auscultation bilaterally, Normal air movement Cardiovascular: No edema, Regular rate/rhythm, Normal S1 S2 Capillary refill: <2 Seconds Gastrointestinal: Normal bowel sounds, Soft and benign, No tenderness Musculoskeletal: No clubbing, No swelling, No tenderness Integumentary: No rashes, No breakdown, No significant lesion Neurological: Normal speech, Normal tone, Normal affect Lymphatics: No axilla or inguinal lymphadenopathy - Studies Laboratory Data (last 24 hrs) 01/07/23 02:17: WBC 12.60 H, Hgb 14.0, Hct 41.6, Plt Count 438 H 01/07/23 02:17: Sodium 130 L, Potassium 3.9, BUN 14, Creatinine 0.89, Glucose 136 H, Magnesium 2.0, Total Bilirubin 1.1 H, AST 19, ALT 25, Alkaline Phosphatase 88 Assessment and Plan - Plan --Nausea and vomiting. CT abdomen does not indicate any acute intra-abdominal abnormality. Antiemetics on board. Continue supportive care. -- Back pain. CT imaging indicates acute appearing fracture of the superior T12 endplate and Mild superior endplate compression deformity at T11. Physical therapy consulted. We will manage pain with current pain medication regimen. -- Hyperlipidemia. Continue statin. -- Hypertension. Poorly controlled. Continue home medications and hydralazine as needed. --Anxiety disorder. Patient placed on Ativan as needed. -- Leukocytosis. Likely reactive. We will continue to monitor WBC levels. --CKD 2. Stable. We will continue to monitor renal function. --Insomnia. Continue home medication. --DVT prophylaxis Lovenox subQ. Discharge Plan: Home Plan to discharge in: 48 Hours - Advance Directives Does patient have a Living Will: No Does patient have a Durable POA for Healthcare: No - Code Status/Comfort Care Code Status Assessed: Yes Physician Review: Patient Assessed, Agree with Above Assessment and Plan Critical Care: No
--- NOTE | 2023-01-07 11:35 | RAD REPORT ---
EXAM DESCRIPTION: MRI - MRA Neck W/Wo Cont - 01/07/2023 10:05 am CLINICAL HISTORY: HEADACHE, WEAKNESS COMPARISON: MRA Head Wo Cont dated 01/07/2023; Brain W/Wo Cont dated 01/07/2023; Head Brain Wo Cont da magali 01/07/2023 TECHNIQUE: Contrast-enhanced 3D MR angiography of the neck vessels was performed, following intrave nous administration of 15 mL MultiHance. Multiplanar reformats and MIP reconstructions were generated and reviewed. FINDINGS: No evidence of dissection. Common carotid arteries are patent. Internal carotid arteries are patent to the skullbase. Left vertebral artery is patent, although poor signal to noise ratio somewhat limits evaluation of it s origin. Diminutive caliber of the right vertebral artery starting at the origin, which may be devel opmental, or related to proximal stenosis. IMPRESSION: Diminutive caliber of the right vertebral artery starting at the origin, may be developm ental or related to proximal stenosis. No other evidence of obstruction or flow-limiting stenosis of the cervical carotid or left vertebral arteries.
[2023-01-07] MEDS ORDERED: HYDRALAZINE HCL 20 MG/ML VIAL IV PRN (11:41)
[2023-01-07] MEDS ORDERED: LORazepam 2 MG/ML VIAL IV PRN (11:43)
[2023-01-07] MEDS: ASPIRIN 81 MG CHEWABLE TABLET PO SCH (12:00)
--- NOTE | 2023-01-07 13:57 | RAD REPORT ---
EXAM DESCRIPTION: CT - Head Brain Wo Cont - 01/07/2023 7:18 am CLINICAL HISTORY: HEADACHE TECHNIQUE: Contiguous axial CT images obtained through the brain without IV contrast. Coronal and sa gittal reformatted images were provided. This exam was performed according to our departmental dose-optimization program, which includes autom ated exposure control, adjustment of the mA and/or kV according to patient size and/or use of iterati ve reconstruction technique. COMPARISON: None available for comparison FINDINGS: Brain: Mild age-related loss of brain volume and chronic white matter ischemic changes.. N o focal mass effect. Sullivan-white matter differentiation is within normal limits. No hemorrhage. Ventricles: No ventriculomegaly or midline shift. Extra-axial spaces: Increased extra-axial space bordering the left frontal lobe with CSF density, whi ch may represent small chronic subdural hematoma or hygroma. This measures approximately 6 mm in thic kness. No underlying edema or mass effect. Paranasal sinuses and mastoid air cells: Well-aerated Bones: Unremarkable Soft tissues: Unremarkable IMPRESSION: 1. Increased extra-axial space bordering the left frontal lobe with CSF density, which may represent small chronic subdural hematoma or hygroma. No underlying edema or mass effect. No acu te intracranial hemorrhage. 2. Mild age-related loss of brain volume and chronic white matter ischemic changes. Electronically signed by: Arturo Sheikh MD 01/07/2023 4:45 AM CDT Due to temporary technical issues with the PACS/Fluency reporting system, reports are being signed by the in house radiologist without review as a courtesy to ensure prompt reporting. The interpreting r adiologist is fully responsible for the content of the report.
--- NOTE | 2023-01-07 13:58 | RAD REPORT ---
EXAM DESCRIPTION: CT - Spine Lumbar Wo Con - 01/07/2023 7:18 am COMPARISON: None. CLINICAL HISTORY: [facility] MAIN PAIN TECHNIQUE: Axial CT images were obtained through the entire lumbar spine without contrast. Sagitta l and coronal reconstructions are provided. Automated exposure control was utilized on this examinati on as a dose lowering technique. FINDINGS: Vertebrae: Small superior T12 endplate deformity is present with minimal height loss. Spinal canal, foramina, and facet joints: Small disc bulges result in mild spinal canal stenoses at L1-L2, L2-L3, and L4-L5. Mild bilateral charisse ral foraminal stenoses are present at L2, L3 due to facet hypertrophy. Moderate bilateral neural fora freddy stenoses are present at L4 due to facet hypertrophy. Paraspinous soft-tissues: Normal. Other Findings: Severe atherosclerosis. Cholelithiasis. Colonic diverticulosis. IMPRESSION: Acute appearing fracture of the superior T12 endplate with minimal height loss. Electronically signed by: Louie Collins MD 01/07/2023 4:38 AM CDT Due to temporary technical issues with the PACS/Fluency reporting system, reports are being signed by the in house radiologist without review as a courtesy to ensure prompt reporting. The interpreting r adiologist is fully responsible for the content of the report.
--- NOTE | 2023-01-07 14:01 | RAD REPORT ---
EXAM DESCRIPTION: RAD - Chest Single View - 01/07/2023 2:45 am CLINICAL HISTORY: Headache TECHNIQUE: AP chest COMPARISON: None available for comparison FINDINGS: CHEST: Heart: The cardiomediastinal silhouette is within normal limits. Lungs: No focal consolidation. Mediastinum: Unremarkable Pleura: No appreciable effusion. No pneumothorax. Bones: Intact IMPRESSION: No acute cardiopulmonary disease. Electronically signed by: Arturo Sheikh MD 01/07/2023 3:13 AM CDT Due to temporary technical issues with the PACS/Fluency reporting system, reports are being signed by the in house radiologist without review as a courtesy to ensure prompt reporting. The interpreting r adiologist is fully responsible for the content of the report.
[2023-01-07 14:30] VITALS: BMI 27.2
[2023-01-07 14:36] LABS: Thyroid Stimulating Hormone 1.6 uIU/mL (0.358-3.740)
[2023-01-07] MEDS: ONDANSETRON 4 MG/2 ML VIAL IV PRN ×2 (16:31→21:36)
[2023-01-07] MEDS: MORPHINE 4 MG/ML SYR IV PRN ×2 (16:31→21:36)
[2023-01-07] MEDS ORDERED: ENOXAPARIN 40 MG/0.4 ML SQ SCH (17:00)
--- NOTE | 2023-01-07 17:10 | EKG ---
Test Date: 2023-01-07 Test Time: 02:57:44 [employer] Operator: JANE MEASUREMENT RESULTS: Intervals: Rate: 67 SC: 178 QRSD: 86 QT: 454 QTc: 479 Martin: P: 73 SC: 178 QRS: 50 T: 68 INTERPRETIVE STATEMENTS: Normal sinus rhythm Normal ECG Compared to ECG 04/30/2018 10:50:13 Sinus bradycardia no longer present Electronically Signed On 01-07-23 17:09:36 CDT by Jung Harrison
--- NOTE | 2023-01-07 20:44 | P.PN ---
Date of Service: 01/08/23 Subjective: ROS: 10 point ROS as noted above, otherwise negative Physical Exam: Gen: Alert, NAD, AOx3 HEENT: normal conjunctiva, sclera anicteric CV: regular rate & rhythm, no edema Pulm: non-labored respirations on room air, clear bilaterally Abd: soft, non-tender, non-distended MSK: no joint tenderness Neuro: normal speech, normal affect, moves all extremities Problem List: 1. Nausea and vomiting 2. Back pain 3. Hyperlipidemia 4. Hypertension 5. Anxiety disorder 6. Leukocytosis 7. CKD [address] abdomen does not indicate any acute intra-abdominal abnormality. Continue supportive care. CT imaging indicates acute appearing fracture of the superior T12 endplate and Mild superior endplate compression deformity at T11. Physical therapy consulted. PRN pain medication Antiemetics on board. Continue statin. Continue home medications and hydralazine as needed. Ativan as needed for anxiety monitor WBC levels. Likely reactive Renal function stable. Continue to monitor Continue home insomnia medication. VTE: Lovenox sq
[2023-01-07] MEDS ORDERED: ATORVASTATIN 40 MG TAB PO SCH (21:00)
[2023-01-07 21:19] LABS: Specific Gravity 1.008 (1.005-1.030); Urine Bilirubin NEGATIVE (Negative); Urine Blood Negative (Negative); Urine Clarity Clear (Clear); Urine Color Colorless (Yellow); Urine Glucose NEGATIVE (Negative); Urine Protein NEGATIVE (Negative); Urine Urobilinogen Normal (Normal)
[2023-01-08] MEDS: ONDANSETRON 4 MG/2 ML VIAL IV PRN ×3 (03:58→16:14)
[2023-01-08] MEDS: MORPHINE 4 MG/ML SYR IV PRN ×2 (03:58→10:41)
[2023-01-08 04:15] LABS: Absolute Lymphocytes (CBC) 2.4 K/uL (0.7-4.9); Hematocrit 35.5 % (36.0-45.0); Lymphocytes % 20.4 % (15.3-44.8); MCV 92.9 fL (80-100); MPV 7.9 fL (7.6-11.3); RBC Red Blood Cell Count 3.82 M/uL (3.86-4.86)
[2023-01-08] MEDS: ASPIRIN 81 MG CHEWABLE TABLET PO SCH (08:55)
[2023-01-08 10:24] VITALS: O2SAT 94
[2023-01-08 12:08] VITALS: TEMP 97.4
[2023-01-08 16:26] VITALS: BP 125/62
== END 2023-01-08 16:38 | disposition home or self-care (01) ==
LOC: ER 01:14 → ERHOLD 11:06 → 2ND 13:11
PROVIDERS: ADMIT Hospitalist; ATTEND Hospitalist
DX: R11.2 Nausea with vomiting, unspecified (principal); M54.9 Dorsalgia, unspecified; E78.5 Hyperlipidemia, unspecified; I10 Essential (primary) hypertension; F41.9 Anxiety disorder, unspecified; D72.829 Elevated white blood cell count, unspecified; N18.2 Chronic kidney disease, stage 2 (mild); G47.00 Insomnia, unspecified; F51.9 Sleep disorder not due to a substance or known physiological condition, unspecified; Z88.6 Allergy status to analgesic agent
CPT/HCPCS: 93005; 85025 ×2; 80048 ×2; 36415 ×2; 83735 ×2; 82550; 80076; 84443; 81003; 84484; 84439; 83880 ×2; 72131; 70450; 74176; 71045; 70553; 70544; 70549; 97161; 96375; 96374; 99285; A9577; J2550; J2765; J2405 ×7; J7040; J7030; G0378; J1650

== ENCOUNTER 2023-06-14 20:32 | Emergency (ER) | payer OTHER ==
--- OUTSIDE RECORDS SUMMARY | 2023-06-14 20:36 | XMS REPORT | Continuity of Care Document ---
Author Name Unknown Address [address] [facility] [address] [place] [address] [facility] thconnect Address [address] [facility] [place] [address] Care Team Providers Care Chief Design Drafter Name Role Phone Ty_Rosalinda Attending Clinician Unavailable Ty_P Admitting Clinician Unavailable Payers Payer Name Policy Type Policy Number Effective Date Expirati on Date Source MEDICARE NOVITAS MB [id number] C [facility] Blue [place] C1 [id number] [facility] MEDICARE NOVITAS MB [id number] C [facility] [place] C1 [id number] [facility] [place] C1 [id number] [facility] MEDICARE NOV[place] MB [id number] C [facility] MEDICARE NOVITAS MB [id number] C [facility] Blue Cross and Blue Shield C1 [id number] [facility] Blue Cross and Blue Shield C1 [id number] [facility] MEDICARE NOVITAS MB [id number] [facility] [place] [id number] 2019 00:00:00 [place] [id number] 2017 00:00:00 [place] - [facility] - [facility] [id number] 2017 00:00:00 Problems Condition Name Condition Details Condition Category Status Onset Date Resolution Date Last Treatment Date Treating Clinician Comments Source [id number] Arthritis of left acromiocla vicular joint Problem [facility] [id number] 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 Ordering Clinician Indication Dosage Frequency Signature (SIG) Comments Components Source Bupivicaine [place] Bupivicaine [place] 11-29 00:00: 00 No 2.5mg [facility] Kenalog (Triamcinol one) Kenalog (Triamcinol one) 11-29 00:00: 00 No 40mg [facility] Hydrochloro thiazide Hydrochloro thiazide Yes Rickie Stone not defined [facility] Montelukast Sodium Montelukast Sodium Yes Rickie Stone not defined [facility] Temazepam Temazepam Yes Rickie Stone not defined [facility] Ibuprofen Ibuprofen Yes Rickie Stone not defined [facility] Lidocaine & Adhesive Sheet Lidocaine & Adhesive Sheet Yes Rickie Stone as directed [facility] Carvedilol Carvedilol Yes Rickie Stone not defined [facility] Lidocaine & Adhesive Sheet 5 % Lidocaine & Adhesive Sheet 5 % No Lidocaine & Adhesive Sheet 5 % ZyrTEC ZyrTEC No ZyrTEC B Complex B Complex No B Complex ProAir HFA ProAir HFA No ProAir HFA Mupirocin Mupirocin No Mupirocin Losartan Potassium Losartan Potassium No Losartan Potassium Wellbutrin Wellbutrin No Wellbutrin Diclofenac Diclofenac No Diclofenac Zovirax Zovirax No Zovirax Ibuprofen 800 MG Ibuprofen 800 MG No Ibuprofen 800 MG Carvedilol 12.5 MG Carvedilol 12.5 MG No Carvedilol 12.5 MG Flonase Flonase No Flonase Carvedilol 12.5 MG Carvedilol 12.5 MG No Carvedilol 12.5 MG Lidocaine & Adhesive Sheet 5 % Lidocaine & Adhesive Sheet 5 % No Lidocaine & Adhesive Sheet 5 % Montelukast Sodium 10 MG Montelukast Sodium 10 MG No Montelukas t Sodium 10 MG Temazepam 15 MG Temazepam 15 MG No Temazepam 15 MG Ibuprofen 800 MG Ibuprofen 800 MG No Ibuprofen 800 MG Hydrochloro thiazide 25 MG Hydrochloro thiazide 25 MG No Hydrochlor othiazide 25 MG Carvedilol 12.5 MG Carvedilol 12.5 MG No Carvedilol 12.5 MG Lidocaine & Adhesive Sheet 5 % Lidocaine & Adhesive Sheet 5 % No Lidocaine & Adhesive Sheet 5 % Montelukast Sodium 10 MG Montelukast Sodium 10 MG No Montelukas t Sodium 10 MG Temazepam 15 MG Temazepam 15 MG No Temazepam 15 MG Ibuprofen 800 MG Ibuprofen 800 MG No Ibuprofen 800 MG Hydrochloro thiazide 25 MG Hydrochloro thiazide 25 MG No Hydrochlor othiazide 25 MG Carvedilol 12.5 MG Carvedilol 12.5 MG No Carvedilol 12.5 MG Lidocaine & Adhesive Sheet 5 % Lidocaine & Adhesive Sheet 5 % No Lidocaine & Adhesive Sheet 5 % Montelukast Sodium 10 MG Montelukast Sodium 10 MG No [place]elukas t Sodium 10 MG Temazepam 15 MG Temazepam 15 MG No Temazepam 15 MG Ibuprofen 800 MG Ibuprofen 800 MG No Ibuprofen 800 MG Hydrochloro thiazide 25 MG Hydrochloro thiazide 25 MG No Hydrochlor othiazide 25 MG Ibuprofen 800 MG Ibuprofen 800 MG No Ibuprofen 800 MG Lidocaine & Adhesive Sheet 5 % Lidocaine & Adhesive Sheet 5 % No Lidocaine & Adhesive Sheet 5 % Montelukast Sodium 10 MG Montelukast Sodium 10 MG No Montelukas t Sodium 10 MG hydroCHLORO thiazide 25 MG hydroCHLORO thiazide 25 MG No hydroCHLOR Othiazide 25 MG Carvedilol 12.5 MG Carvedilol 12.5 MG No Carvedilol 12.5 MG Temazepam 15 MG Temazepam 15 MG No Temazepam 15 MG Ibuprofen 800 MG Ibuprofen 800 MG No Ibuprofen 800 MG Montelukast Sodium 10 MG Montelukast Sodium 10 MG No Montelukas t Sodium 10 MG Lidocaine & Adhesive Sheet 5 % Lidocaine & Adhesive Sheet 5 % No Lidocaine & Adhesive Sheet 5 % Temazepam 15 MG Temazepam 15 MG No Temazepam 15 MG Carvedilol 12.5 MG Carvedilol 12.5 MG No Carvedilol 12.5 MG hydroCHLORO thiazide 25 MG hydroCHLORO thiazide 25 MG No hydroCHLOR Othiazide 25 MG traZODone HCl traZODone HCl No traZODone HCl Zofran Zofran No Zofran Singulair Singulair No Singulair Levalbutero l HCl Levalbutero l HCl No Levalbuter ol HCl Vascepa Vascepa No Vascepa Valtrex Valtrex No Valtrex Folic Acid Folic Acid No Folic Acid Breztri Aerosphere Breztri Aerosphere No Breztri Aerosphere Fioricet Fioricet No Fioricet Phenylalani ne Phenylalani ne No Phenylalan ine Temazepam 15 MG Temazepam 15 MG No Temazepam 15 MG Montelukast Sodium 10 MG Montelukast Sodium 10 MG No Montelukas t Sodium 10 MG Robaxin Robaxin No Robaxin Coreg Coreg No Coreg hydroCHLORO thiazide 25 MG hydroCHLORO thiazide 25 MG No hydroCHLOR Othiazide 25 MG Vitamin D Vitamin D No Vitamin D Quercetin Quercetin No Quercetin carvedilol 25 mg tablet carvedilol 25 mg tablet No carvedilol 25 mg tablet [facility] Flovent Diskus 100 mcg/actuati on powder for inhalation Flovent Diskus 100 mcg/actuati on powder for inhalation No Flovent Diskus 100 mcg/actuat ion powder for inhalation [facility] fluticasone propionate 50 mcg/actuati on nasal spray,suspe nsion fluticasone propionate 50 mcg/actuati on nasal spray,suspe nsion No fluticason e propionate 50 mcg/actuat ion nasal spray,susp ension [facility] hydrochloro thiazide 25 mg tablet hydrochloro thiazide 25 mg tablet No hydrochlor othiazide 25 mg tablet [facility] ipratropium bromide 0.02 % solution for inhalation ipratropium bromide 0.02 % solution for inhalation No ipratropiu m bromide 0.02 % solution for inhalation [facility] ketorolac 10 mg tablet ketorolac 10 mg tablet No ketorolac 10 mg tablet [facility] levalbutero l HFA 45 mcg/actuati on aerosol inhaler levalbutero l HFA 45 mcg/actuati on aerosol inhaler No levalbuter ol HFA 45 mcg/actuat ion aerosol inhaler [facility] losartan 50 mg tablet losartan 50 mg tablet No losartan 50 mg tablet [facility] montelukast 10 mg tablet montelukast 10 mg tablet No montelukas t 10 mg tablet [facility] mupirocin 2 % topical ointment mupirocin 2 % topical ointment No mupirocin 2 % topical ointment [facility] Restoril 15 mg capsule Take 1 capsule every day by oral route. Restoril 15 mg capsule Take 1 capsule every day by oral route. No 1capsul e(s) Q1D Restoril 15 mg capsule Take 1 capsule every day by oral route. [facility] Symbicort 160 mcg-4.5 mcg/actuati on HFA aerosol inhaler Symbicort 160 mcg-4.5 mcg/actuati on HFA aerosol inhaler No Symbicort 160 mcg-4.5 mcg/actuat ion HFA aerosol inhaler [facility] valacyclovi r 1 gram tablet valacyclovi r 1 gram tablet No valacyclov ir 1 gram tablet [facility] Wellbutrin XL 300 mg 24 hr tablet, extended release Take 1 tablet every day by oral route. Wellbutrin XL 300 mg 24 hr tablet, extended release Take 1 tablet every day by oral route. No 1 Q1D Wellbutrin XL 300 mg 24 hr tablet, extended release Take 1 tablet every day by oral route. [facility] Vital Signs Vital Name Observation Time Observation Value Comments S ource height 2022-06-19 10:00:00 62 [in_i] Commo n [facility] weight 2022-06-19 10:00:00 148.7 [lb_av] Co mmon [facility] temperature 2022-06-19 10:00:00 96.6 [degF] Com [facility] bmi 2022-06-19 10:00:00 27.19 kg/m2 Comm on [facility] blood pressure systolic 2022-06-19 10:00:00 120 mm[Hg] [facility] blood pressure diastolic 2022-06-19 10:00:00 80 mm[Hg] [facility] height 2021-01-30 09:00:00 62 [in_i] Commo n [facility] weight 2021-01-30 09:00:00 146 [lb_av] Comm on [facility] temperature 2021-01-30 09:00:00 97.5 [degF] Com [facility] bmi 2021-01-30 09:00:00 26.7 kg/m2 Commo n [facility] blood pressure systolic 2021-01-30 09:00:00 116 mm[Hg] [facility] blood pressure diastolic 2021-01-30 09:00:00 74 mm[Hg] [facility] height 2020-11-29 08:00:00 62 [in_i] Commo n [facility] weight 2020-11-29 08:00:00 146 [lb_av] Comm on [facility] temperature 2020-11-29 08:00:00 97.3 [degF] Com [facility] bmi 2020-11-29 08:00:00 26.7 kg/m2 Commo n [facility] blood pressure systolic 2020-11-29 08:00:00 122 mm[Hg] [facility] blood pressure diastolic 2020-11-29 08:00:00 82 mm[Hg] [facility] height 2020-11-07 14:00:00 62 [in_i] Commo n [facility] weight 2020-11-07 14:00:00 146.7 [lb_av] Co mmon [facility] bmi 2020-11-07 14:00:00 26.83 kg/m2 Comm on [facility] blood pressure systolic 2020-11-07 14:00:00 126 mm[Hg] [facility] blood pressure diastolic 2020-11-07 14:00:00 84 mm[Hg] [facility] BP Diastolic 2019-09-04 00:00:00 80 mm[Hg] [facility] Height 2019-09-04 00:00:00 62 [in_i] [facility] BMI (Body Mass Index) 2019-09-04 00:00:00 27.6 kg/m2 [facility] BP Systolic 2019-09-04 00:00:00 119 mm[Hg] [facility] Body Weight 2019-09-04 00:00:00 151 [lb_av] [facility] BP Diastolic 2019-07-24 00:00:00 92 mm[Hg] [facility] Height 2019-07-24 00:00:00 62 [in_i] [facility] BMI (Body Mass Index) 2019-07-24 00:00:00 27.7 kg/m2 [facility] BP Systolic 2019-07-24 00:00:00 145 mm[Hg] [facility] Body Weight 2019-07-24 00:00:00 151.4 [lb_av] [facility] BP Diastolic 2019-06-22 00:00:00 92 mm[Hg] [facility] Height 2019-06-22 00:00:00 62 [in_i] [facility] BMI (Body Mass Index) 2019-06-22 00:00:00 27.1 kg/m2 [facility] BP Systolic 2019-06-22 00:00:00 127 mm[Hg] [facility] Body Weight 2019-06-22 00:00:00 148 [lb_av] [facility] Procedures Procedure Date / Time Performed Performing Clinician Source [facility]OM[facility] 2019-09-04 [facility] 2019-06-22 00:00:00 [facility] K[facility]throscopy/surgery 2017-03-05 00:00:00 [facility] Hysterectomy 1986-07-01 00:00:00 [facility] Plan of Care Planned Activity Planned Date Details Comments Source Instructions [facility] Encounters Start Date/Time End Date/Time Encounter Type Admission Type Attending Clinicians Care Facility Care Department Encounter ID Source 2022-07-04 12:34:00 Outpatient STLMLC STLMLC [id number] [facility] 2022-06-19 13:08:01 Outpatient STLMLC STLMLC [id number] [facility] 2022-05-28 15:19:00 Outpatient STLMLC STLMLC [id number] [facility] 2021-07-26 13:01:26 Outpatient STLMLC STLMLC [id number] [facility] 2021-07-26 12:52:31 Outpatient STLMLC STLMLC [id number] [facility] 2022-06-19 00:00:00 2022-06-19 00:00:00 OFFICE VISIT ESTAB PT LEVEL 4 STLMLC STLMLC [id number] [facility] 2021-01-30 00:00:00 2021-01-30 00:00:00 OFFICE VISIT EST PT LEVEL 3 STLMLC STLMLC [id number] [facility] 2020-11-29 00:00:00 2020-11-29 00:00:00 OFFICE VISIT ESTAB PT LEVEL 4 STLMLC STLMLC [id number] [facility] 2020-11-23 00:00:00 2020-11-23 00:00:00 (TEL) STLMLC STLMLC [id number] [facility] 2020-11-08 00:00:00 2020-11-08 00:00:00 (TEL) STLMLC STLMLC [id number] [facility] 2020-11-07 00:00:00 2020-11-07 00:00:00 OFFICE VISIT ESTAB PT LEVEL 4 STLMLC STLC [id number] [facility] 2020-06-02 05:02:00 2020-06-02 05:02:00 Outpatient Raju_P MMG [id number] [facility] 2020-05-18 02:34:00 2020-05-18 02:34:00 Outpatient Raju_P MMG [id number] [facility] 2019-11-17 03:28:00 2019-11-17 03:28:00 Outpatient Raju_P MMG [id number] [facility] 2019-11-10 12:53:00 2019-11-10 12:53:00 Outpatient Raju_P MMG [id number] [facility] 2019-11-04 12:49:00 2019-11-04 12:49:00 Outpatient Raju_P MMG MMG [id number] [facility] 2019-09-30 01:18:00 2019-09-30 01:18:00 Outpatient Raju_P MMG MMG [id number] [facility] 2019-09-10 04:00:00 2019-09-10 04:00:00 Outpatient Raju_P MMG [id number] [facility] 2019-09-08 02:29:00 2019-09-08 02:29:00 Outpatient Raju_P MMG [id number] [facility] 2019-09-07 10:40:00 2019-09-07 10:40:00 Outpatient Raju_P MMG [id number] [facility] 2019-09-04 12:36:00 2019-09-04 12:36:00 Outpatient Raju_P MMG [id number] [facility] 2019-09-04 00:00:00 2019-09-04 00:00:00 Barrie Crawford MD: [address], [address], [place] [address] , Ph. [facility] [place] - Otolaryngol [facility]gy-MOB [id number] [facility] 2019-08-31 05:27:00 2019-08-31 05:27:00 Outpatient Raju_P MMG [facility] [id number] [facility] 2019-07-28 08:38:00 2019-07-28 08:38:00 [id number] [facility] 2019-07-27 03:03:00 2019-07-27 03:03:00 [id number] [facility] 2019-07-24 04:42:00 2019-07-24 04:42:00 [id number] [facility] 2019-07-24 00:00:00 2019-07-24 00:00:00 Barrie Crawford MD: [address], [address], [place] [address] , Ph. [facility] [place] [facility]-MOB [id number] [facility] 2019-07-10 11:31:00 2019-07-10 11:31:00 Outpatient Raju_P MMG [facility] [id number] [facility] 2019-06-22 00:00:00 2019-06-22 00:00:00 Barrie Crawford MD: [address], [address], [place] [address] , Ph. MMG [facility] [place] [facility]gy-MOB [id number] [facility] 2018-06-19 09:30:00 2018-06-19 09:30:00 [facility] [id number] [facility] 2018-04-10 13:30:00 2018-04-10 13:30:00 Outpatient [facility] [id number] [facility] Results Test Description Test Time Test Comments Results Result [id number]* Test Item Value Reference Range Interpretation Comme nts Right (test code = Right) Type C Peak is on Left Left (test code = Left) Type A Normal [facility]
[2023-06-14] MEDS ORDERED: HYDROCODONE/APAP 5/325 MG TAB ONE (21:13)
[2023-06-14] MEDS ORDERED: IBUPROFEN 400 MG TAB ONE (21:13)
--- NOTE | 2023-06-14 22:13 | RAD REPORT ---
EXAM DESCRIPTION: RAD - Pelvis - 06/14/2023 9:45 pm CLINICAL HISTORY: Pelvic pain status post injury FINDINGS: No fracture or dislocation is seen. If the patient continues to have symptoms to suggest an occult fracture then MRI would be recommended
--- NOTE | 2023-06-14 22:13 | RAD REPORT ---
EXAM DESCRIPTION: RAD - Femur Left - 06/14/2023 9:45 pm CLINICAL HISTORY: Left leg pain FINDINGS: The bones are osteoporotic. No fracture is seen. If patient continues to have symptoms to suggest an occult fracture MRI would be recommended
--- NOTE | 2023-06-15 00:58 | ER ---
Nurse's Notes [facility] Name: Skye Guzmán Age: 68 yrs Sex: Female : 1955 Arrival Date: 06/14/2023 Time: 20:32 Bed 14 Private MD: Diagnosis: Fall on same level from slipping, tripping and stumbling without subsequent striking against object;Pain in left hip Presentation: 06/14 20:47 Chief complaint: Patient states: tripped over cement block fell twisting left side vc1 hurting left hip down to left knee. Coronavirus screen: Vaccine status: Patient reports receiving the 2nd dose of the covid vaccine. At this time, the client does not indicate any symptoms associated with coronavirus-19. Ebola Screen: Patient negative for fever greater than or equal to 101.5 degrees Fahrenheit, and additional compatible Ebola Virus Disease symptoms Patient denies exposure to infectious person. Patient denies travel to an Ebola-affected area in the 21 days before illness onset. No symptoms or risks identified at this time. Initial Sepsis Screen: Does the patient meet any 2 criteria? No. Patient's initial sepsis screen is negative. Does the patient have a suspected source of infection? No. Patient's initial sepsis screen is negative. Risk Assessment: Do you want to hurt yourself or someone else? Patient reports no desire to harm self or others. Onset of symptoms was June 14, 2023. 20:47 Method Of Arrival: Wheelchair vc1 20:47 Acuity: MALLY 3 vc1 20:55 Care prior to arrival: None. la4 20:55 Mechanism of Injury: Fall standing trip and fall while walking. Trauma event details: la4 Injury occurred in the [facility], Injury occurred: at home. Triage Assessment: 20:50 General: Appears in no apparent distress. uncomfortable, Behavior is calm, cooperative, vc1 appropriate for age. Pain: Complains of pain in left hip and left knee Pain does not radiate. Pain currently is 4 out of 10 on a pain scale. at worst was 10 out of 10 on a pain scale. Quality of pain is described as sharp, Pain began suddenly, Is continuous, Alleviated by rest, Aggravated by increased activity, repositioning, weight bearing, Noted to be grimacing, resistant to movement. EENT: No deficits noted. No signs and/or symptoms were reported regarding the EENT system. Neuro: Level of Consciousness is awake, alert, obeys commands, Oriented to person, place, time, situation, Appropriate for age. Cardiovascular: No deficits noted. Respiratory: Airway is patent Respiratory effort is even, unlabored, Respiratory pattern is regular, symmetrical. GI: No deficits noted. No signs and/or symptoms were reported involving the gastrointestinal system. : No deficits noted. No signs and/or symptoms were reported regarding the genitourinary system. Derm: No deficits noted. No signs and/or symptoms reported regarding the dermatologic system. Musculoskeletal: Reports pain in left hip and left knee. Historical: - Allergies: 20:49 NKA; vc1 - PMHx: 20:49 Anxiety; Hyperlipidemia; Hypertension; vc1 - PSHx: 20:49 section; right knee repair; Total abdominal hysterectomy; vc1 - Immunization history:: Client reports receiving the 2nd dose of the Covid vaccine. - Social history:: Smoking status: Patient denies any tobacco usage or history of. - Immunization history: Last tetanus immunization: unknown. Screenin:55 Abuse screen: Denies threats or abuse. Denies injuries from another. Tuberculosis la4 screening: No symptoms or risk factors identified. Primary Survey: 20:55 NO uncontrolled hemorrhage observed. A: The client is awake and alert. The airway is la4 patent. The client is alert. Airway: patent. Breathing/Chest: Spontaneous respiratory effort, equal unlabored respirations, breath sounds clear bilaterally, regular pattern, symmetrical chest rise and fall. Respiratory effort: spontaneous, unlabored, Breath sounds: clear, bilaterally. Respiratory pattern: regular, Chest inspection: symmetrical rise and fall of the chest. Circulation: No external hemorrhage present. Regular and strong central pulse, skin warm/dry/normal color. Disability Pupils are equal, round, reactive to light and accommodation. Client is alert. Exposure/Environment: All clothing and personal items were removed. Forensic evidence collection is not deemed to be indicated at this time. Items placed in patient belonging bag. There is no evidence of uncontrolled external bleeding. No obvious injuries are noted at this time. A warming method has been applied: A warm blanket has been provided to the patient. Reassessment Alertness and Airway: Awake and alert. The airway is patent. Breathing: Spontaneous respiratory effort, equal unlabored respirations, breath sounds clear bilaterally, regular pattern with symmetrical chest rise and fall. Respiratory effort Spontaneous Unlabored Breath sounds Clear Respiratory pattern Regular Chest inspection Symmetrical Circulation: No external hemorrhage noted. Regular and strong central pulse, skin warm/dry/normal color. Pulses Palpable Color [place] Temperature Warm Dry Disability: Pupils Pupils are equal, round, reactive to light and accomodation. Secondary Survey: 20:55 HEENT: No deficits noted. Gastrointestinal: No deficits noted. : No deficits noted. la4 Assessment: 20:55 General: Appears uncomfortable, Behavior is calm, cooperative, appropriate for age. la4 Pain: Complains of pain in left hip, lateral aspect of left thigh and lateral aspect of left knee Pain does not radiate. Pain currently is 6 out of 10 on a pain scale. Quality of pain is described as aching, sharp, Pain began suddenly, Is continuous, Alleviated by rest, Aggravated by increased activity, repositioning, weight bearing, touch\E\ Noted to be. Neuro: No deficits noted. Fitch Agitation-Sedation Scale (RASS): 0 - Alert and Calm Level of Consciousness is awake, alert, obeys commands, Oriented to person, place, time, situation, Appropriate for age Ccie are equal bilaterally Moves all extremities. Speech is normal. Respiratory: No deficits noted. Airway is patent Respiratory effort is even, unlabored, Respiratory pattern is regular, symmetrical. GI: No deficits noted. : No deficits noted. Musculoskeletal: No deficits noted. Circulation, motion, and sensation intact. Capillary refill < 3 seconds, is brisk, Range of motion: intact in all extremities, c/o pain w/ movement but has full AROM to left lower leg. Report tenderness to touch over the top of the thigh area. Sates she fell on the ground after tripping over a cinder block. 21:42 Reassessment: Patient appears in no apparent distress at this time. No changes from la4 previously documented assessment. xray completed at bedside at this time. 21:55 Reassessment: No changes from previously documented assessment. la4 Vital Signs: 20:47 BP 128 / 76; Pulse 70; Resp 15; Temp 98.2; Pulse Ox 97% ; Weight 68.04 kg; Height 5 ft. vc1 2 in. ; Pain 4/10; 23:41 BP 135 / 99; Pulse 69; Resp 18; Pulse Ox 96% ; Pain 0/10; la4 06/15 01:14 BP 134 / 87; Pulse 59; Resp 18; Temp 97.7; Pulse Ox 97% on R/A; la4 06/14 20:47 Body Mass Index 27.44 (68.04 kg, 157.48 cm) vc1 06/14 20:47 Pain Scale: Adult vc1 23:41 Pain Scale: Adult la4 06/14 23:41 reports pain is gone at this time la4 Braulio Coma Score: 20:55 Eye Response: spontaneous(4). Motor Response: obeys commands(6). Verbal Response: la4 oriented(5). Total: 15. 23:41 Eye Response: spontaneous(4). Motor Response: obeys commands(6). Verbal Response: la4 oriented(5). Total: 15. 06/15 01:14 Eye Response: spontaneous(4). Motor Response: obeys commands(6). Verbal Response: la4 oriented(5). Total: 15. Trauma Score (Adult): 06/14 20:55 Eye Response: spontaneous(1); Verbal Response: oriented(1); Motor Response: obeys la4 commands(2); Systolic BP: > 89 mm Hg(4); Respiratory Rate: 10 to 29 per min(4); Braulio Score: 15; Trauma Score: 12 ED Course: 20:34 Patient arrived in ED. gm2 20:35 Charly Le PA is PHCP. cp 20:35 Russell Obrien MD is Attending Physician. cp 20:49 Triage completed. vc1 20:50 Arm band placed on right wrist. vc1 20:55 Patient has correct armband on for positive identification. Fall risk band placed. la4 Placed in gown. Bed in low position. Call light in reach. Side rails up X2. X-ray(s) taken. 20:55 Patient maintains SpO2 saturation greater than 95% on room air. la4 20:57 Ricco Goncalves, RN is Primary Nurse. la4 21:46 Pelvis In Process Unspecified. EDMS 21:46 Femur Left In Process Unspecified. EDMS 21:55 No apparent distress. Awaiting for x-ray, Awaiting re-evaluation by ER provider. la4 06/15 00:18 CT Lumbar Spine Wo Con In Process Unspecified. EDMS 00:18 CT Pelvis wo Cont In Process Unspecified. EDMS Administered Medications: 06/14 21:20 Drug: HYDROcodone-acetaminophen PO 5 mg-325 mg 1 tabs PO once Route: PO; la4 21:58 Follow up: Response: No adverse reaction; Pain is decreased la4 06/15 01:10 Follow up: Response: No adverse reaction; Pain is decreased la4 06/14 21:20 Drug: Ibuprofen PO 800 mg PO once Route: PO; la4 21:57 Follow up: Response: No adverse reaction; Pain is decreased la4 06/15 01:10 Follow up: Response: No adverse reaction; Pain is decreased la4 01:10 Drug: fentaNYL (PF) IM 25 mcg IM once Route: IM; Site: right deltoid; la4 01:14 Follow up: Response: No adverse reaction; Pain is decreased la4 01:10 Drug: Cyclobenzaprine PO 10 mg PO once Route: PO; la4 01:14 Follow up: Response: No adverse reaction; Pain is decreased la4 Medication: 06/14 20:52 VIS not applicable for this client. vc1 Outcome: 06/15 00:58 Discharge ordered by MD. velasquez 01:24 Patient left the ED. la4 Signatures: Dispatcher [employer] EDMS Charly Le PA PA cp Calcote, Vanessa RN RN vc1 Valerie Foley 2 Ricco Goncalves RN RN la4
--- NOTE | 2023-06-15 00:59 | EDPHYS ---
Physician Documentation [facility] Name: Skye Guzmán Age: 68 yrs Sex: Female : 1955 Arrival Date: 06/14/2023 Time: 20:32 Bed 14 Private MD: ED Physician Russell Obrien HPI: 06/14 21:10 This 68 yrs old Female presents to ER via Wheelchair with complaints of Fall Injury, cp Hip Pain. 21:10 Details of fall: The patient fell from an upright position, while walking. Onset: The cp symptoms/episode began/occurred today. Associated injuries: The patient sustained pelvis and left hip and left groin. Severity of symptoms: in the emergency department the symptoms are unchanged, despite home interventions. Patient reports losing balance and falling onto left hip. Has had difficulty bearing weight since fall and has needed assistance. Historical: - Allergies: 20:49 NKA; vc1 - PMHx: 20:49 Anxiety; Hyperlipidemia; Hypertension; vc1 - PSHx: 20:49 section; right knee repair; Total abdominal hysterectomy; vc1 - Immunization history:: Client reports receiving the 2nd dose of the Covid vaccine. - Social history:: Smoking status: Patient denies any tobacco usage or history of. - Immunization history: Last tetanus immunization: unknown. ROS: 21:15 MS/extremity: Positive for pain, of the pelvis and left hip and left groin, Negative cp for deformity, 21:15 Eyes: Negative for injury, pain, redness, and discharge, cp 21:15 Constitutional: Negative for body aches, chills, fever, poor PO intake, 21:15 Neck: Negative for pain with movement, pain at rest, stiffness, 21:15 Cardiovascular: Negative for chest pain, edema, palpitations, 21:15 Respiratory: Negative for cough, shortness of breath, wheezing, 21:15 Abdomen/GI: Negative for abdominal pain, nausea, vomiting, and diarrhea, 21:15 Back: Negative for decreased range of motion, 21:15 Neuro: Negative for altered mental status, dizziness, headache, loss of consciousness, syncope, weakness, 21:15 All other systems are negative, Exam: 21:20 Constitutional: The patient appears in no acute distress, alert, awake, cp non-diaphoretic, non-toxic, well developed, well nourished, 21:20 Head/Face: Normocephalic, atraumatic. cp 21:20 Eyes: Periorbital structures: appear normal, Conjunctiva: normal, no exudate, no injection, Sclera: no appreciated abnormality, Lids and lashes: appear normal, bilaterally, 21:20 ENT: External ear(s): are unremarkable, Nose: is normal, Mouth: Lips: moist, Oral mucosa: moist, Posterior pharynx: is normal, airway is patent, no erythema, no exudate, 21:20 Neck: ROM/movement: is normal, is supple, without pain, no range of motions limitations, 21:20 Chest/axilla: Inspection: normal, Palpation: crepitus, is not appreciated, tenderness, is not appreciated, 21:20 Cardiovascular: Rate: normal, Rhythm: regular, Edema: is not appreciated, JVD: is not appreciated, 21:20 Respiratory: the patient does not display signs of respiratory distress, Respirations: normal, no use of accessory muscles, no retractions, labored breathing, is not present, Breath sounds: are clear throughout, no decreased breath sounds, no stridor, no wheezing, 21:20 Abdomen/GI: Inspection: abdomen appears normal, Palpation: abdomen is soft and non-tender, in all quadrants, 21:20 Back: pain, that is mild, of the left low back, 21:20 Musculoskeletal/extremity: Extremities: grossly normal except: noted in the left hip: pain, tenderness to palpation left groin and pain with left hip flexion, There is no evidence of decreased ROM, deformity, Perfusion: the extremity is normally perfused throughout, the left leg Sensation intact. 21:20 Neuro: Orientation: to person, place \T\ time. Mentation: is normal, Motor: moves all fours, strength is normal, Sensation: no obvious gross deficits, Vital Signs: 20:47 BP 128 / 76; Pulse 70; Resp 15; Temp 98.2; Pulse Ox 97% ; Weight 68.04 kg; Height 5 ft. vc1 2 in. ; Pain 4/10; 23:41 BP 135 / 99; Pulse 69; Resp 18; Pulse Ox 96% ; Pain 0/10; la4 1216 01:14 BP 134 / 87; Pulse 59; Resp 18; Temp 97.7; Pulse Ox 97% on R/A; la4 06/14 20:47 Body Mass Index 27.44 (68.04 kg, 157.48 cm) vc1 06/14 20:47 Pain Scale: Adult vc1 23:41 Pain Scale: Adult la4 06/14 23:41 reports pain is gone at this time la4 Braulio Coma Score: 20:55 Eye Response: spontaneous(4). Motor Response: obeys commands(6). Verbal Response: la4 oriented(5). Total: 15. 23:41 Eye Response: spontaneous(4). Motor Response: obeys commands(6). Verbal Response: la4 oriented(5). Total: 15. 06/15 01:14 Eye Response: spontaneous(4). Motor Response: obeys commands(6). Verbal Response: la4 oriented(5). Total: 15. Trauma Score (Adult): 06/14 20:55 Eye Response: spontaneous(1); Verbal Response: oriented(1); Motor Response: obeys la4 commands(2); Systolic BP: > 89 mm Hg(4); Respiratory Rate: 10 to 29 per min(4); Braulio Score: 15; Trauma Score: 12 MDM: 20:53 Patient medically screened. cp 06/15 00:57 Data reviewed: vital signs, nurses notes, radiologic studies, CT scan, plain films. cp 00:57 Differential diagnosis: contusion, fracture, multiple trauma. I considered the cp following discharge prescriptions or medication management in the emergency department Medications were administered in the Emergency Department. See MAR. Counseling: I had a detailed discussion with the patient and/or guardian regarding the historical points, exam findings, and any diagnostic results supporting the discharge/admit diagnosis, radiology results, the need for outpatient follow up, a family practitioner, to return to the emergency department if symptoms worsen or persist or if there are any questions or concerns that arise at home. Response to treatment: the patient's symptoms have markedly improved after treatment, and as a result, I will discharge patient. 06/14 21:20 Order name: Pelvis EDMS 06/14 21:23 Order name: Femur Left EDMS 06/14 22:45 Order name: CT Lumbar Spine Wo Con cp 06/14 22:45 Order name: CT Pelvis wo Cont cp Administered Medications: 06/14 21:20 Drug: HYDROcodone-acetaminophen PO 5 mg-325 mg 1 tabs PO once Route: PO; la4 21:58 Follow up: Response: No adverse reaction; Pain is decreased la4 06/15 01:10 Follow up: Response: No adverse reaction; Pain is decreased la4 06/14 21:20 Drug: Ibuprofen PO 800 mg PO once Route: PO; la4 21:57 Follow up: Response: No adverse reaction; Pain is decreased la4 06/15 01:10 Follow up: Response: No adverse reaction; Pain is decreased la4 01:10 Drug: fentaNYL (PF) IM 25 mcg IM once Route: IM; Site: right deltoid; la4 01:14 Follow up: Response: No adverse reaction; Pain is decreased la4 01:10 Drug: Cyclobenzaprine PO 10 mg PO once Route: PO; la4 01:14 Follow up: Response: No adverse reaction; Pain is decreased la4 Disposition Summary: 06/15/23 00:58 Discharge Ordered Notes: Location: Home cp Problem: new cp Symptoms: have improved cp Condition: Stable cp Diagnosis - Fall on same level from slipping, tripping and stumbling without subsequent cp striking against object - Pain in left hip cp Followup: cp - With: Private Physician - When: 2 - 3 days - Reason: Worsening of condition Discharge Instructions: - Discharge Summary Sheet cp - Fall Prevention in the Home, Adult cp - Musculoskeletal Pain cp - Hip Pain cp Forms: - Medication Reconciliation Form cp - Thank You Letter cp - Antibiotic Education cp - Prescription Opioid Use cp - Patient Portal Instructions cp - Leadership Thank You Letter cp Prescriptions: - indomethacin 50 mg Oral capsule - take 1 capsule ORAL route 2 times per day administer with food or milk; 20 cp capsule; Refills: 0, Product Selection Permitted - methocarbamol 750 mg Oral tablet - take 1 tablet ORAL route 3 times per day; 30 tablet; Refills: 0, Product cp Selection Permitted Addendum: 06/21/2023 09:04 Co-signature as Attending Physician, Russell Obrien MD I reviewed the patient's care r n provided by the Advanced Practice Provider and agree with the diagnosis and treatment plan. Signatures: Dispatcher [employer] Russell Domínguez MD MD rn Page, Corey, PA PA cp Calcote, Vanessa, RN RN vc1 Ricco Goncalves RN RN la4 Corrections: (The following items were deleted from the chart) 06/14 23:08 23:02 Femur Left+RAD.RAD.BRZ ordered. EDMS EDMS 23:02 Pelvis+RAD.RAD.BRZ ordered. EDMS EDMS
[2023-06-15] MEDS ORDERED: CYCLOBENZAPRINE 10 MG TAB ONE (01:04)
[2023-06-15] MEDS ORDERED: FENTANYL CITR 100 MCG/2 ML ONE (01:04)
[2023-06-15 04:51] VITALS: BP 134/87; TEMP 97.7; O2SAT 97
--- NOTE | 2023-06-17 17:22 | RAD REPORT ---
EXAM DESCRIPTION: CT PELVIS WITHOUT IV CONTRAST CLINICAL HISTORY: Female, 68 years old, fall, left hip pain CLINICAL HISTORY: Same-day pelvis radiograph and CT lumbar spine TECHNIQUE: CT acquisition of the pelvis without contrast. Coronal and sagittal reformatted images pr ovided. This exam was performed according to departmental dose-optimization program which includes au tomated exposure control, adjustment of the mA and/or kV according to patient size, and/or use of ite rative reconstruction technique. FINDINGS: Bones: No acute fracture. Normal osseous mineralization. Joints: No dislocation. No obvious joint effusion. Degenerative change of the hips. Spine: Imaged vertebral body heights are normal. No listhesis. Spondylotic change is present. Other: No acute finding of the imaged pelvic contents, muscles/tendons, or soft tissues. Uncomplicate d colonic diverticulosis. Absent uterus. Is Aortic and branch vessel atherosclerosis. IMPRESSION: No acute osseous finding in the pelvis. Electronically signed by: Carrillo Valdivia MD 06/15/2023 12:44 AM DELIVERY ASSOCIATE Due to temporary technical issues with the PACS/Fluency reporting system, reports are being signed by the in house radiologists without review as a courtesy to insure prompt reporting. The interpreting radiologist is fully responsible for the content of the report.
--- NOTE | 2023-06-17 17:31 | RAD REPORT ---
EXAM DESCRIPTION: CT Lumbar Spine Without Intravenous Contrast CLINICAL HISTORY: Fall TECHNIQUE: Axial computed tomography images of the lumbar spine without intravenous contrast. Sagi ttal and coronal reformatted images were created and reviewed. This CT exam was performed using one or more of the following dose reduction techniques: automated exposure control, adjustment of the mA and/or kV according to patient size, and/or use of iterative reconstruction technique. COMPARISON: No relevant prior studies available. FINDINGS: Vertebrae: Remote superior T12 compression fracture at prior vertebroplasty. No acute fr acture or subluxation. Discs/spinal canal/neural foramina: Mild to moderate multilevel degenerative changes. No canal sten osis. Soft tissues: Unremarkable. Vasculature: Moderate to severe atherosclerotic disease. IMPRESSION: No acute injury. Electronically signed by: Trung Michael MD 06/15/2023 12:44 AM OPTIMIZATION ENGINEER Due to temporary technical issues with the PACS/Fluency reporting system, reports are being signed by the in house radiologists without review as a courtesy to insure prompt reporting. The interpreting radiologist is fully responsible for the content of the report.
== END 2023-06-15 01:24 | disposition home or self-care (01) ==
LOC: ER 20:32
DX: M25.552 Pain in left hip (principal); W01.0XXA Fall on same level from slipping, tripping and stumbling without subsequent striking against object, initial encounter; Y92.009 Unspecified place in unspecified non-institutional (private) residence as the place of occurrence of the external cause; I10 Essential (primary) hypertension; E78.5 Hyperlipidemia, unspecified; F41.9 Anxiety disorder, unspecified
CPT/HCPCS: 72131; 72170; 72192; 96372; 99284